=== PATIENT | male | born 1935 | race Native Hawaiian/Other Pacific Islander ===

== ENCOUNTER 2016-04-23 11:31 | Emergency (ER) | payer MEDICARE, MEDICAID ==
[~2016-04-23] VITALS: Ht 167.6 cm; Wt 78.6 kg
[2016-04-23 11:50] VITALS: BP 106/65; PULSE 84; RESP 20; O2SAT 98
[2016-04-23 12:43] LABS: BASOPHILS % (AUTO) 0.3 % (0-3); MONOCYTES % (AUTO) 4.5 % (4-12); Mean Corpuscular Hemoglobin 29.9 pg (27.0-35.0); Mean Corpuscular Volume 83.6 fL (81-100); NEUTROPHILS % (AUTO) 78.7 % (40-74); Platelet Count 396 bil/L (150-400)
[2016-04-23 12:55] LABS: Magnesium 1.7 mg/dL (1.6-2.6)
--- NOTE | 2016-04-23 13:57 | ED.REPORT ---
HPI-General Illness Date of Service Apr 23, 2016 ED Provider: Derrell Kunz MD This is a 80 year old male with a history of DM, kidney failure on peritoneal dialysis, on Plavix, and CAD presenting to the ED from urgent care complaining of generalized malaise that began 2 weeks ago. Daughter states pt has had a normal appetite and chews food but is unable to swallow. Also reports increased malaise. Denies fever, chills, diarrhea, abdominal pain. Pt last saw his speech lang path therapist yesterday, Dr. Heredia. Blood sugar in urgent care of 390. Nursing Notes Stated Complaint: WEAKNESS,HIGH BLOOD SUGAR,LACK OF APPETITE Chief Complaint: General Complaint Nursing Notes Reviewed: Yes Allergies: Coded Allergies: No Known Allergies (Unverified , 04/23/16) General Time Seen by MD: 13:55 Chief Complaint Other Hx Obtained From: Patient Arrived By: Walk-in Sudden in Onset?: Yes Onset Occurred: Just prior to arrival Symptom Duration: Since onset Severity: Current: No pain currently Pertinent Negative: Pt denies other symptoms Recent Healthcare: No recent doctor visit, No recent hospitalization Similar Sx Previous: No Past Medical History Past Medical History CAD Kidney failure Reports: Diabetes mellitus, Denies: COPD, Cancer Past Surgical History Bypass Social History Alcohol Use: Denies alcohol use Ambulatory Status Independent Review of Systems Full Review of Systems Constitutional: Reports: Malaise, Recent wt loss, Denies: Chills, Fever Respiratory: Denies: Non-productive cough, Shortness of breath GI: Denies: Abdominal pain, Diarrhea, Nausea, Vomiting Neurologic: Denies: Change LOC, Headache Complete sys rev & neg: except as marked. Physical Exam Vital Signs Vital Signs Date Time Temp Pulse Resp B/P Pulse Ox O2 Delivery O2 Flow Rate FiO2 04/23/16 17:03 75 21 122/66 100 Room Air 04/23/16 16:13 73 12 100/59 98 Room Air 04/23/16 11:50 36.7 84 20 106/65 98 Room Air Initial VS: Reviewed Head / Eyes: Atraumatic, Normocephalic, PERRL ENT: Mucous membranes moist, Conjunctiva normal, No scleral icterus Neck: Supple, Non-tender, Full range of motion Respiratory: Breath sounds normal, Clear to auscultation, No respiratory distress Extremities: Vascular intact, Neuro intact, No swelling, No tenderness Skin: Warm, Dry, No cyanosis Neurologic: Alert, Oriented, Nonfocal Psychiatric: Mood/affect normal, Behavior normal, Normal thought content General/Constitutional: Awake, Alert Heart Sounds / Murmur: Positive: Murmur present... (II/) Abdomen: Soft, Non-tender Interpretation & Diagnostics Lab Results Interpretation Result Diagram: 04/23/16 1225 04/23/16 1225 Test 04/23/16 12:25 04/23/16 14:00 White Blood Count 11.9th/mm3 (3.8-10.1) Red Blood Count 4.45mil/mm3 (4.40-5.80) Hemoglobin 13.3g/dL (13.8-17.2) Hematocrit 37.2% (41.0-50.0) Mean Corpuscular Volume 83.6fL (81-100) Mean Corpuscular Hemoglobin 29.9pg (27.0-35.0) Mean Corpuscular Hemoglobin Concent 35.8% (32.0-37.0) Red Cell Distribution Width 13.2% (12.3-15.4) Platelet Count 396bil/L (150-400) Neutrophils (%) (Auto) 78.7% (40-74) Lymphocytes (%) (Auto) 13.2% (14-46) Monocytes (%) (Auto) 4.5% (4-12) Eosinophils (%) (Auto) 3.0% (0-5) Basophils (%) (Auto) 0.3% (0-3) Sodium Level 128mEq/L (134-144) Potassium Level 3.1mEq/L (3.5-5.2) Chloride Level 86mEq/L (97-108) Carbon Dioxide Level 25mmol/L (18-29) Blood Urea Nitrogen 35mg/dL (8-27) Creatinine 5.98mg/dL (0.76-1.27) Estimat Glomerular Filtration Rate 10mL/min (>59) Glucose Level 380mg/dL (60-99) Calcium Level 8.3mg/dL (8.5-10.1) Magnesium Level 1.7mg/dL (1.6-2.6) Total Bilirubin 0.4mg/dL (0.0-1.2) Aspartate Amino Transf (AST/SGOT) 17U/L (0-50) Alanine Aminotransferase (ALT/SGPT) 9U/L (0-44) Alkaline Phosphatase 125U/L (25-160) Total Protein 7.0g/dL (6.4-8.4) Albumin 2.7g/dL (3.4-5.0) Lipase 80U/L (13-60) Hold Khan Top Tube Received (Received) Body Fluid Source Peritoneal fluid Body Fluid Color Colorless (Clear) Body Fluid Appearance Clear Body Fluid WBC 14/mm3 Body Fluid RBC 0/mm3 Body Fluid Polynuclear WBCs 4% Body Fluid Lymphocytes 17% Body Fluid Monocytes 60% Body Fluid Eosinophils 19% Body Fluid Basophils 0% Re-Eval/Medical Decision Time of Eval: 17:01 Re-Evaluation/Progress Note: Re-checked, discussed lab results, plan for consult with Dr. Heredia, and plan for d/c. Consultation : Referral / Consult Name: Irina Loya MD Consulted With: Nephrology Call Returned at: 17:15 Community Arts Worker: Will see in office Counseled Regarding: Diagnosis, Lab results, Need for follow-up, When/why to return to ED Discharge & Departure Primary Impression: Abnormal weight loss Disposition: Home Discharge Condition All VS Reviewed: Yes Condition: Stable Additional Instructions: Follow up with Dr. Heredia, nephrology. Your appointment is tomorrow, 04/24, at 11: 00 AM in the [facility]. Your appointment is not in the dialysis unit but in the clinic. No swallowing abnormality was discovered. Return to the emergency department for any new or worsening symptoms Referrals: Enrique Durham MD (PCP) Scribe Attestation Portions of this note were transcribed by Robert Palomares. I, Dr. Kunz personally performed the history, physical exam and medical decision-making; I reviewed and confirmed the accuracy of the information in the transcribed note. Signed by: siomara Miller. 04/23/2016, 15:00. Derrell Kunz MD Apr 23, 2016 13:57 ROBERT PALOMARES Apr 23, 2016 14:02
[2016-04-23 15:44] LABS: BFWBC 14 /mm3; MONOCYTES,BODY FLUID 60 %; OTHER CELLS,BODY FLUID 0
--- NOTE | 2016-04-23 16:00 | NUR ---
Evaluation completed. Please go to "Notes" then click on "Assessments and Notes" (bottom left corner of screen). Then select appropriate discipline tab on top of screen.
[2016-04-23 16:13] VITALS: BP 100/59; PULSE 73; RESP 12; O2SAT 98
[2016-04-23 17:03] VITALS: BP 122/66; PULSE 75; RESP 21; O2SAT 100
[2016-04-23 17:44] VITALS: BP 122/66; PULSE 75; RESP 21; O2SAT 100
== END 2016-04-23 17:44 | disposition home or self-care (01) ==
LOC: SED 11:31
DX: R63.4 Abnormal weight loss (principal); E11.65 Type 2 diabetes mellitus with hyperglycemia; E11.22 Type 2 diabetes mellitus with diabetic chronic kidney disease; I12.9 Hypertensive chronic kidney disease with stage 1 through stage 4 chronic kidney disease, or unspecified chronic kidney disease; N18.9 Chronic kidney disease, unspecified; I25.10 Atherosclerotic heart disease of native coronary artery without angina pectoris; J44.9 Chronic obstructive pulmonary disease, unspecified; Z99.2 Dependence on renal dialysis; Z85.9 Personal history of malignant neoplasm, unspecified; Z95.1 Presence of aortocoronary bypass graft; Z79.02 Long term (current) use of antithrombotics/antiplatelets
CPT/HCPCS: 36415; 80053; 83690; 83735; 85025; 87040; 89051; 92610; 93005; 99284; G8996; G8997; G8998

== ENCOUNTER 2016-10-14 01:06 | Day surgery (SDC) | payer MEDICARE, MEDICAID ==
[~2016-10-14 01:06] MED LIST: AMLO5TAB2 PO; ASPI-973 PO; ATOR80TA PO; CHOL500011 PO; FINA5TAB9 PO; FOLI1CAP4 PO; GABA-502 PO; INSU100I SUBQ; INSU100V7 SUBQ; LACT10SO60 PO; METO25TA3 PO; MULT1CAP33 PO; NITR0.4T SL; OLP.1OP5 AFFECT_EYE; RANI-426 PO; TRAZ-115 PO
== END 2016-10-14 23:59 | disposition home or self-care (01) ==
LOC: SOUO 01:06
PROVIDERS: ATTEND Podiatrist
DX: I73.9 Peripheral vascular disease, unspecified (principal); Z53.20 Procedure and treatment not carried out because of patient's decision for unspecified reasons

== ENCOUNTER 2016-10-27 14:29 | Inpatient (IN) | payer MEDICARE, MEDICAID ==
[~2016-10-27] VITALS: Ht 167.6 cm; Wt 83.2 kg
[2016-10-27] VITALS (8 sets, daily range): BP systolic 153–169; BP diastolic 68–100; PULSE 86–93; RESP 17–27; O2SAT 94–98
--- NOTE | 2016-10-27 14:32 | ED.REPORT ---
HPI-Chest Pain 40 and Over Date of Service Oct 27, 2016 ED Provider: Daniel Kenny DO The pt is a 81 y/o male w/ a hx of type 2 diabetes, CAD, end stage renal disease , and bypass surgery presenting to the ED due to SOB just prior to arrival. The pt is also experiencing a cough, chills, and difficulty sleeping due to excessive phlegm production. Denies fevers. The pts daughter reports his blood sugar level being 163 at 1000 this morning and his blood pressure usually being in the 130s. She also reports the symptoms being similar to an episode of pneumonia he had 6 months ago. Nursing Notes Stated Complaint: CHEST PAIN Chief Complaint: SOB Nursing Notes Reviewed: Yes Allergies: Coded Allergies: No Known Allergies (Unverified , 04/23/16) Scheduled Amlodipine (Amlodipine) 10 Mg Tablet 10 MG PO QAM Aspirin (Aspirin) 81 Mg Tablet 81 MG PO QAM Atorvastatin (Lipitor) 80 Mg Tablet 80 MG PO HS Finasteride (Finasteride) 5 Mg Tablet 5 MG PO QAM Folic Acid/Vitamin B Comp W-C (Triphrocaps Softgel) 1 Mg Capsule 1 MG PO QAM Gabapentin (Gabapentin) 300 Mg Capsule 300 MG PO TID ON FRIDAY/FRIDAY/FRIDAYS Insulin Aspart (NovoLOG U-100 Pen) 100 Unit/Ml Insuln.pen 7-8 UNITS SUBQ TIDAC GIVE 7 UNITS IF BG 100-200 MG/DL, GIVE 8 UNITS IF BG > 200 MG/DL. IF BG < 90 , DO NOT GIVE AND WAIT 2 HOURS Insulin Glargine (Lantus U100 Insulin Vial) 100 Unit/Ml Vial 32-36 UNIT SUBQ HS TAKES 36 UNITS IF BG > 140 MG/DL. 32 UNITS FOR BG 100->140 MG/DL. Multivitamin (Multivitamins) 1 Each Capsule 1 EACH PO QAM [place]-3/Dha/Epa/Fish Oil (Fish Oil 1,000 mg Softgel) 1 Each Capsule 1 EACH PO QAM Ranitidine (Ranitidine) 75 Mg Tablet 75 MG PO QAM Trazodone (Trazodone) 50 Mg Tablet 25 MG PO HS Umeclidinium [place] (Incruse Ellipta) 62.5 Mcg/Actuation Blst.w.dev 62.5 MCG IH QAM Scheduled PRN Lactulose (Lactulose) 20 Gm/30 Ml Solution 20 GM PO PRN For Constipation Nitroglycerin SL (Nitrostat) 0.4 Mg Tab.subl 0.4 MG SL Q5MIN PRN PRN For Chest Pain Olopatadine (Patanol) 5 Ml Soln 1 DRP AFFECT_EYE DAILY PRN PRN For Eye Irritation General Time Seen by MD: 14:32 Chief Complaint Shortness of breath Hx Obtained From: Patient, Daughter Arrived By: Walk-in Sudden in Onset?: Yes Onset Occurred: Just prior to arrival Symptom Duration: Since onset Recent Healthcare: No recent hospitalization, Recent doctor visit Past Medical History Past Medical History CAD Kidney failure End stage renal disease Reports: Diabetes mellitus Past Surgical History Bypass Social History Alcohol Use: Denies alcohol use Other Social History: Good social support Ambulatory Status Independent Review of Systems Excessive phlegm production Constitutional: Reports: Chills, Denies: Fever Respiratory: Reports: Prod cough, green, Shortness of breath Complete sys rev & neg: except as marked. Physical Exam Initial Vital Signs Vital Signs (First) Date Time Temp Pulse Resp B/P Pulse Ox O2 Delivery O2 Flow Rate FiO2 10/27/16 14:34 37.6 93 27 169/78 96 Room Air Initial VS: Reviewed Head / Eyes: Atraumatic, Normocephalic, PERRL ENT: Mucous membranes moist, Conjunctiva normal, No scleral icterus Neck: Supple, Non-tender, Full range of motion Skin: Warm, Dry, No cyanosis Neurologic: Alert, Oriented, Nonfocal Psychiatric: Mood/affect normal, Behavior normal, Normal thought content General/Constitutional: Awake, Alert Respiratory / Chest: Breath sounds = bilat, No respiratory distress Coarse rales bilat Midline sternotomy scar Cardiovascular: Heart rate NL, Regular rhythm, Heart sounds NL Lower Ext Edema: Positive: Bilateral 1+ Abdomen: Soft, Non-tender peritoneal dialysis catheter in Interpretation & Diagnostics Lab Results Interpretation Result Diagram: 10/27/16 1500 10/27/16 1500 Test 10/27/16 15:00 White Blood Count 16.3th/mm3 (3.8-10.1) Red Blood Count 3.49mil/mm3 (4.40-5.80) Hemoglobin 10.9g/dL (13.8-17.2) Hematocrit 32.0% (41.0-50.0) Mean Corpuscular Volume 91.7fL (81-100) Mean Corpuscular Hemoglobin 31.2pg (27.0-35.0) Mean Corpuscular Hemoglobin Concent 34.1% (32.0-37.0) Red Cell Distribution Width 12.6% (12.3-15.4) Platelet Count 225bil/L (150-400) Neutrophils (%) (Auto) 82.7% (40-74) Lymphocytes (%) (Auto) 8.3% (14-46) Monocytes (%) (Auto) 6.2% (4-12) Eosinophils (%) (Auto) 2.4% (0-5) Basophils (%) (Auto) 0.2% (0-3) Prothrombin Time 10.0sec (8.1-12.5) Prothromb Time International Ratio 0.94ratio Sodium Level 135mEq/L (134-144) Potassium Level 3.3mEq/L (3.5-5.2) Chloride Level 95mEq/L (97-108) Carbon Dioxide Level 25mmol/L (18-29) Blood Urea Nitrogen 37mg/dL (8-27) Creatinine 5.53mg/dL (0.76-1.27) Estimat Glomerular Filtration Rate 11mL/min (>59) Glucose Level 78mg/dL (60-99) Lactic Acid Level 1.2mmol/L (0.4-2.0) Calcium Level 8.7mg/dL (8.5-10.1) Magnesium Level 1.9mg/dL (1.6-2.6) Total Bilirubin 0.4mg/dL (0.0-1.2) Aspartate Amino Transf (AST/SGOT) 14U/L (0-50) Alanine Aminotransferase (ALT/SGPT) 17U/L (0-44) Alkaline Phosphatase 98U/L (25-160) Total Creatine Kinase 316U/L (21-232) Creatine Kinase MB 3.6ng/mL (0.0-10.4) Creatine Kinase MB % % (0.0-5.0) Troponin T 0.068ug/L (0.0-0.011) Total Protein 7.6g/dL (6.4-8.4) Albumin 3.9g/dL (3.4-5.0) Procalcitonin 0.13ng/mL (0.00-0.08) ECG Interpretation ECG Interpretation: Rate 90 NSR Inferior Q waves (Old) Lateral Q wave inversions that appear to have been present previously Time: 14:41 X-Ray Chest Interpretation Chest Xray Interpretation: IMPRESSION: 1. New right basilar pneumonia. Follow up plain films of the chest are recommended to ensure resolution, and to exclude underlying or central malignancy. 2. Right perihilar scarring. 3. Cardiomegaly. Dictated by: Han Farrell M.D. on 10/27/2016 at 14:53 Approved by: Han Farrell M.D. on 10/27/2016 at 14:54 View: Portable, 1 view Interpretation / Wet Read by: Interpret - Radiologist Re-Eval/Medical Decision Med Decision/Clinical Course Clinically patient has signs and symptoms of pneumonia. He will be admitted. Source of Hx: Old records Time of Eval: 15:46 Re-Evaluation/Progress Note: Pt rechecked. Informed pt of need for admission. Pt understands and agrees with plan for admission. All questions addressed. Time of Eval: 17:03 Re-Evaluation/Progress Note: Code status discussed: DNR/DNI Consultation : Referral / Consult Name: Bandar Gardner MD Consulted With: Hospitalist Call Returned at: 16:30 New Product Trainer: Will see patient, Agrees with eval, Agrees with plan, Accepts admit Counseled Regarding: Diagnosis, Lab results, Need for admission Discharge & Departure Primary Impression: Pneumonia Pneumonia type: due to unspecified organism Laterality: unspecified laterality Lung location: unspecified part of lung Qualified Code: J18.9 - Pneumonia, unspecified organism Disposition: ADMITTED TO HOSPITAL Discharge Condition All VS Reviewed: Yes Condition: Stable Referrals: Enrique Durham MD (PCP) Scribe Attestation Portions of this note were transcribed by Juni Esparza. I, Dr. Kenny personally performed the history, physical exam and medical decision-making; I reviewed and confirmed the accuracy of the information in the transcribed note. Signed by : Chago Mooney, 10/27/16 and 1529. copies to: Enrique Durham MD, Timothy S DO Oct 27, 2016 14:32 Juni Esparza Oct 27, 2016 15:18
[2016-10-27] MEDS ORDERED: Ondansetron 2 mg/mL 2 mL Inj IVPUSH ONE (14:35)
--- NOTE | 2016-10-27 14:56 | DRSVH ---
PROCEDURE: X-RAY CHEST ONE VIEW, PORTABLE ([id number]) INDICATIONS: chest pain TECHNIQUE: One view of the chest was acquired. COMPARISON: [facility], CT, CT CHEST WO CON, 06/11/2016, 17:03. [facility], CR, XR CHEST 2VW, 06/07/2016, 15:20. FINDINGS: Surgical changes and devices: Median sternotomy. Lungs and pleura: No pleural effusions or pneumothorax. Right perihilar density is not significantly changed. There is new patchy opacity within the right lung base. Mediastinum: Mediastinal contours appear normal. Heart size is enlarged. Bones and chest wall: No suspicious bony lesions. Overlying soft tissues appear unremarkable. IMPRESSION: 1. New right basilar pneumonia. Follow up plain films of the chest are recommended to ensure resoluti on, and to exclude underlying or central malignancy. 2. Right perihilar scarring. 3. Cardiomegaly. Dictated by: Han Farrell M.D. on 10/27/2016 at 14:53 Approved by: Han Farrell M.D. on 10/27/2016 at 14:54
[2016-10-27] MEDS ORDERED: UMEC62.5 IH (15:15)
[2016-10-27] MEDS ORDERED: AMLO10TA3 PO (15:15)
[2016-10-27] MEDS ORDERED: lantus solostar SUBQ (15:15)
[2016-10-27] MEDS ORDERED: FOLI1CAP4 PO (15:15)
[2016-10-27] MEDS ORDERED: OMEG-38 PO (15:15)
[2016-10-27 15:18] LABS: BASOPHILS % (AUTO) 0.2 % (0-3); EOSINOPHILS % (AUTO) 2.4 % (0-5); MONOCYTES % (AUTO) 6.2 % (4-12); Mean Corpuscular Hemoglobin 31.2 pg (27.0-35.0); Mean Corpuscular Volume 91.7 fL (81-100); NEUTROPHILS % (AUTO) 82.7 % (40-74); Platelet Count 225 bil/L (150-400)
[2016-10-27 15:47] LABS: INR 0.94 ratio
[2016-10-27] MEDS ORDERED: cefTRIAXone Inj 2,000 MG in Dextrose 5% Minibag Plus 50 ML IV ONE (15:50)
[2016-10-27] MEDS ORDERED: Azithromycin Inj 500 MG in Dextrose 5% w/Vial Mate 250 ML IV ONE (15:50)
[2016-10-27 16:04] LABS: Creatine Kinase 316 U/L (21-232); Magnesium 1.9 mg/dL (1.6-2.6)
[2016-10-27 16:13] LABS: TROPONIN T 0.068 ug/L (0.0-0.011)
[2016-10-27] MEDS ORDERED: Alum-Mag Hydrox-Simeth 30 mL Suspension PO PRN (17:05)
[2016-10-27] MEDS ORDERED: Ondansetron 2 mg/mL 2 mL Inj IVPUSH PRN ×2 (17:05)
[2016-10-27] MEDS ORDERED: Polyethylene Glycol (PEG) 17 Gm Powder PO PRN (17:05)
[2016-10-27] MEDS ORDERED: Acetylcysteine 10% 100 mg/mL 30 mL Inhalation Solution NEB PRN (17:10)
--- NOTE | 2016-10-27 17:35 | PCM.HPMED ---
Subjective Date of Service Oct 27, 2016 Primary Provider: Admitting Physician: Bandar Gardner MD Primary Care Physician: Enrique Durham MD Attending Physician: Bandar Gardner MD Admit Status: From the Emergency Department, Full Admit, Admit to Green Team Chief Complaint: Progressively worsening dyspnea/3 days Cough and congestion/3 days History of Present Illness: 81 year old gentleman with past medical history of CAD status post CABG,HTN, ESRD on peritoneal dialysis for a year , diabetes presented to the emergency room due to progressively worsening dyspnea, coughing congestion of 3 days. Daughter states he was seen by his PCP on Friday for a scheduled follow-up visit and was noted to have dyspnea , productive cough and congestion of few days . He was told he probably would have COPD and was prescribed Inhalers. There was also concern for asbestosis lung disease given history of asbestos exposure . No antibiotics given. Dyspnea progressively worsened in the last few days and patient started to have shortness of breath at rest. Daughter states he has cough which is productive of whitish sputum. Denies any fever. Denies chronic cough. Denies any sick contact Ed course: Temp 37.6, RR 27, BP 169/78, sats 96% RA WBC 16.3, hemoglobin 10.8, troponin 0.068, EKG no ischemic change, procal 0.13, cxr New right basilar pneumonia. Ceftriaxone and azithromycin started. Admission requested for CAP Review of Systems: Comprehensive review of systems performed, pertinent positives and negatives included in history of present illness Allergies Coded Allergies: No Known Allergies (Unverified , 04/23/16) Home Medications Amlodipine (Amlodipine) 10 Mg Tablet 10 MG PO QAM Aspirin (Aspirin) 81 Mg Tablet 81 MG PO QAM Atorvastatin (Lipitor) 80 Mg Tablet 80 MG PO HS Finasteride (Finasteride) 5 Mg Tablet 5 MG PO QAM Folic Acid/Vitamin B Comp W-C (Triphrocaps Softgel) 1 Mg Capsule 1 MG PO QAM Gabapentin (Gabapentin) 300 Mg Capsule 300 MG PO TID ON FRIDAY/FRIDAY/FRIDAYS Insulin Aspart (NovoLOG U-100 Pen) 100 Unit/Ml Insuln.pen 7-8 UNITS SUBQ TIDAC GIVE 7 UNITS IF BG 100-200 MG/DL, GIVE 8 UNITS IF BG > 200 MG/DL. IF BG < 90 , DO NOT GIVE AND WAIT 2 HOURS Insulin Glargine (Lantus U100 Insulin Vial) 100 Unit/Ml Vial 32-36 UNIT SUBQ HS TAKES 36 UNITS IF BG > 140 MG/DL. 32 UNITS FOR BG 100->140 MG/DL. Multivitamin (Multivitamins) 1 Each Capsule 1 EACH PO QAM [place]-3/Dha/Epa/Fish Oil (Fish Oil 1,000 mg Softgel) 1 Each Capsule 1 EACH PO QAM Ranitidine (Ranitidine) 75 Mg Tablet 75 MG PO QAM Trazodone (Trazodone) 50 Mg Tablet 25 MG PO HS Umeclidinium [place] (Incruse Ellipta) 62.5 Mcg/Actuation Blst.w.dev 62.5 MCG IH QAM Scheduled PRN Lactulose (Lactulose) 20 Gm/30 Ml Solution 20 GM PO PRN For Constipation Nitroglycerin SL (Nitrostat) 0.4 Mg Tab.subl 0.4 MG SL Q5MIN PRN PRN For Chest Pain Olopatadine (Patanol) 5 Ml Soln 1 DRP AFFECT_EYE DAILY PRN PRN For Eye Irritation PMH CAD status post CABG, ESRD on peritoneal dialysis for a year , diabetes Hypertension BPH Surgical History CABG Leg vein harvesting Peritoneal dialysis Family History reviewed and unremarkable. Patient originally from [facility]. Used to live in [place]. His in 2014 of pneumonia. Daughter brought him up to [place] and lives with her. Social History Hx Alcohol Use: No (occ wine) Hx Substance Use: No Exam Vital Signs Vital Sign - Last Date Time Temp Pulse Resp B/P Pulse Ox O2 Delivery O2 Flow Rate FiO2 10/27/16 17:11 87 19 156/68 98 Room Air 10/27/16 14:34 37.6 Exam Gen. patient is lying comfortably in hospital bed HEENT: Head is normocephalic atraumatic, Pupils equal and reactive, extraocular movements intact, Lungs basal crackles Heart regular rate and rhythm without murmurs gallops or rubs Abdomen. peritoneal dialysis catheter in place Extremities pulses are present dorsalis pedis posterior tibialis and radial. tSkin is warm and dry there are no rashes, Psych alert and oriented to person place and time Neuro cranial nerves II through XII are grossly intact Lymph: There is no lymphadenopathy appreciated in the cervical supra infraclavicular regions : no castañeda Lab and Diagnostics Result Diagram: 10/27/16 1500 10/27/16 1500 X-Rays, CTs and MRIs PROCEDURE: X-RAY CHEST ONE VIEW, PORTABLE ([id number]) INDICATIONS: chest pain TECHNIQUE: One view of the chest was acquired. COMPARISON: [facility], CT, CT CHEST WO CON, 06/11/2016, 17:03. [facility], CR, XR CHEST 2VW, 06/07/2016, 15:20. FINDINGS: Surgical changes and devices: Median sternotomy. Lungs and pleura: No pleural effusions or pneumothorax. Right perihilar density is not significantly changed. There is new patchy opacity within the right lung base. Mediastinum: Mediastinal contours appear normal. Heart size is enlarged. Bones and chest wall: No suspicious bony lesions. Overlying soft tissues appear unremarkable. IMPRESSION: 1. New right basilar pneumonia. Follow up plain films of the chest are recommended to ensure resolution, and to exclude underlying or central malignancy. 2. Right perihilar scarring. 3. Cardiomegaly. Dictated by: Han Farrell M.D. on 10/27/2016 at 14:53 12-lead ECG SR no acute st/t wave changes Assessment & Plan 81 year old gentleman with past medical history of CAD status post CABG,ESRD on peritoneal dialysis for a year , diabetes presented to the emergency room due to progressively worsening dyspnea, coughing congestion of 3 days. # suspected CAP ,poa,acute -Patient has productive cough, leukocytosis,CXr consistent with pneumonia -Antibiotic coverage for CAP not HCAP as he gets his dialysis at home -Continue ceftriaxone and azithromycin -Patient has significant congestion, DuoNeb and Mucomyst nebulizer - Unable to send pneumococcus and Legionella # Elevated troponin of unknown significance -EKG without ischemic changes -trend troponin -had echo in July ,will do limited echo #ESRD on PD -Continue PD -May consider nephrology consult tomorrow # History of CAD status post CABG -Continue aspirin, metoprolol xl 25 mg daily, atorvastatin 80 mg daily # dm -Continue home insulin ,LANTUS 32 u HS,Novolog 7-9 ISS (medium correction used here) # Hypertension -Continue amlodipine and metoprolol # Anemia of CKD Patient has a POLST form stating DNR/DNI ,comfort care only /do not hospitalize , but continuous peritoneal dialysis. May consider palliative consult for clarification of goal Patient admitted under inpatient status with expected length of stay > 2 midnights for severity of present symptoms, complexities of treatment plan and risk for adverse events copies to: Enrique Durham MD, Melaku MD Oct 27, 2016 17:35
[2016-10-27] MEDS ORDERED: FOLIC ACID PO SCH (17:45)
[2016-10-27] MEDS: Omega-3 Fatty Acids 1,000 mg Capsule PO SCH (17:45)
[2016-10-27] MEDS ORDERED: Glucose 40% Oral Gel 15 Gm Tube PO PRN (17:45)
[2016-10-27] MEDS ORDERED: Artificial Tears 15 mL Ophthalmic Solution AFFECT_EYE PRN (17:45)
[2016-10-27] MEDS ORDERED: VITAMIN B COMP W C PO SCH (17:45)
--- NOTE | 2016-10-27 18:33 | NUR ---
Admission Admission from ER to room 3014 via gurkaci with daughter at bedside. ABX infusing, 3L O2. Oriented to room and call light. Admission assessments and med rec completed in ER by admission nurse. chief solution architect contacted and planning of doing PD in [facility]. Nasal swab obtained and sent. Plan of care updated on board.
[2016-10-27] MEDS: Tiotropium 18mcg/Cap 5 Capsule Inhaler Kit INHALATION SCH (21:02)
[2016-10-27] MEDS: Albuterol-Ipratropium 3 mL Inhalation Solution NEB PRN ×2 (21:16→21:19)
[2016-10-27] MEDS: Insulin LISPRO 300 Unit/3 mL Inj SUBQ SCH (22:00)
[2016-10-27] MEDS: Insulin GLARgine 100 Unit/mL Syringe SUBQ SCH (22:05)
[2016-10-28] VITALS (8 sets, daily range): BP systolic 138–157; BP diastolic 68–75; PULSE 58–93; RESP 18–20; O2SAT 91–99
--- NOTE | 2016-10-28 06:13 | NUR ---
Dialysis PD started by dialysis nurse and patient tolerating initially. Patient woke up c/o severe abd pain. Abd noted to be distended as expected with PD but patient states the pressure is not tolerable. manager call center dialysis nurse called and abd drained to relieve pressure. Pain resolved until next cycle but did not seem as severe. Each time abd drained pain resolved. Currently resting without any complaints.
[2016-10-28 06:17] LABS: BASOPHILS % (AUTO) 0.3 % (0-3); EOSINOPHILS % (AUTO) 0.5 % (0-5); MONOCYTES % (AUTO) 7.2 % (4-12); Mean Corpuscular Hemoglobin 31.7 pg (27.0-35.0); Mean Corpuscular Volume 92.7 fL (81-100); NEUTROPHILS % (AUTO) 85.8 % (40-74); Platelet Count 202 bil/L (150-400)
--- NOTE | 2016-10-28 07:20 | NUR ---
Disconnected PD dialysis. Pt stable, site secured. Total UF 914.
[2016-10-28] MEDS ORDERED: Azithromycin Inj 500 MG in Dextrose 5% w/Vial Mate 250 ML IV SCH (08:30)
[2016-10-28] MEDS: Tiotropium 18mcg/Cap 5 Capsule Inhaler Kit INHALATION SCH (10:19)
[2016-10-28] MEDS: Omega-3 Fatty Acids 1,000 mg Capsule PO SCH (10:21)
[2016-10-28] MEDS: Insulin LISPRO 300 Unit/3 mL Inj SUBQ SCH ×4 (10:22→23:56)
[2016-10-28] MEDS: cefTRIAXone Inj 1,000 MG in Dextrose 5% Minibag Plus 50 ML IV SCH (10:23)
--- NOTE | 2016-10-28 11:09 | NUR ---
Palliative Care Palliative Care received verbal order from Dr Junior 10/28/16 to assist with goals of care. Patient admitted 10/27/16. Per Dr Junior in morning rounds, patient is Gibraltarian speaking and refusing care/testing until his family arrives. Patient arrived to hospital with POLST stating DNR/comfort care/Do not hospitalize. Anyi Mcgowan (daughter/POA) [phone], Daniele Mcgowan (son in law) [phone] Palliative Care to follow. Almaz Alva Addendum: 10/28/16 at 1213 by ALMAZ FOOTE Patient speaks Irish, not Gibraltarian. Almaz Alva
--- NOTE | 2016-10-28 13:26 | DRSVH ---
[facility] [address] [place] [address] Echocardiogram Report Name: TONY ARTEAGA BStudy Date: 10/28 Height: 66 in Hospital Exam Location: [facility] Weight: 183 lb Gender: Male BSA: 1.9 m2 : 1935 Age: 81 yrs BP: 138/68 mmHg Reason For Study: Dyspnea History: CABG Ordering Physician: Performed By: Martha Le Referring Physician: Francis Durham Interpretation Summary Left ventricular wall thickness is mild-moderately increased. The ejection fraction is estimated to be 60-65%. The calculated aortic valve area is 0.9 cm2. There has been no significant change since the previous study. The right ventricular systolic pressure is estimated at 40 mmHg assuming a right atrial pressure of 8 mm Hg. Procedure: A two-dimensional transthoracic echocardiogram with color flow and Doppler was performed in limited views only. The study quality was technically adequate. Comparison is made with the echocardiogram of 07/22/2016. The patient was in normal sinus rhythm during the exam. Left Ventricle: Left ventricular wall thickness is mild-moderately increased. The left ventricle is normal in size. The ejection fraction is estimated to be 60-65%. Assessment of diastolic parameters suggests a pseudonormalization pattern, consistent with elevated filling pressures. Right Ventricle: The right ventricle is normal in size and function. Atria: The left atrium is mildly dilated. Mitral Valve: The mitral valve leaflets are slightly calcified. There is mild mitral annular calcification. There is trace mitral regurgitation. Aortic Valve: The aortic valve is not well visualized. The aortic valve is moderately calcified. The calculated aortic valve area is 0.9 cm2. The peak aortic velocity is 3.3 m/sec. The aortic valve mean gradient is 27 mmHg. The peak aortic velocity on the previous exam was 3.1 m/sec. There has been no significant change since the previous study. There is trace aortic regurgitation. Tricuspid Valve: The tricuspid valve is normal. There is trace tricuspid regurgitation. The right ventricular systolic pressure is estimated at 40 mmHg assuming a right atrial pressure of 8 mm Hg. Great Vessels: The IVC is of normal diameter and collapses less than 50% with a sniff. This suggests a right atrial pressure of 8 mm Hg. Pericardium/ Pleura There is no pericardial effusion. MMode/2D Measurements & Calculations LVIDd: 4.3 cm LA A4 area LVOT diam LV george. diameter/BSA LVIDs: 3.2 cm (cm/m^2): 2.2 FS: 24.9 % AoV Opening IVSd: 1.3 cm LA length : 0.52 cm LVPWd: 1.4 cm (vol): 5.5 cm IVC diam : 2.1 cm LV sys. diameter/BSA RVD1 (basal) RVD2 (mid) TAPSE: 1.9 cm (cm/m^2): 1.7 : 2.7 cm Doppler Measurements & Calculations Ao V2 max MV E max yevgeniy MV E/A: 0.94 TR max yevgeniy : 332.3 cm/sec : 92.4 cm/sec Med Peak E' Yevgeniy : 281.4 cm/sec Ao max P.2 mmHg MV A max yevgeniy TR max PG Ao mean P.5 mmHg : 98.4 cm/sec E/E' med: 16.0 : 31.7 mmHg LVOT Max Yevgeniy MV P1/2t Lat Peak E' Yevgeniy : 89.2 cm/sec : 40.7 msec TERESA(I,D): 0.90 cm E/E' lat: 11.3 sev ratio: 0.25 E/e' average MV dec time: 0.14 sec MV P1/2t max yevgeniy Ao V2 mean LV V1 max PG : 246.0 cm/sec MVA(P1/2t) Ao V2 VTI: 72.3 cm LV V1 VTI : 5.4 cm2 TERESA(V,D): 0.97 cm2 : 18.1 cm TERESA indexed to [facility] (cm^2/m^2): 0.47 Electronically signed by: Juan Canchola on Reading Physician:10/28/2016 01:25 PM
--- NOTE | 2016-10-28 15:02 | PCM.CONPAL ---
Date of Service Oct 28, 2016 Date of Hospital Admission: Oct 27, 2016 at 16:50 Date of Palliative Consult: Oct 28, 2016 Requesting Provider: Robert Junior MD Reason Palliative Care Consult: Advance Care Planning, Goals of Care Discussion Hospital Unit @time of consult: Medical/Pediatric Care Palliative Care Recommendation Summary of palliative recommendations: -Symptom management (Pain/other)- comfortable and without symptomatic distress at this time. Continued management per the medical/hospitalist team -DPOA/Advanced Directives/POLST- lengthy discussion with clarification of advanced directive issues as documented below. New POLST indicating DO NOT RESUSCITATE/DO NOT INTUBATE/limited interventions/hospitalization and antibiotics and continued dialysis okay/no artificial nutrition. Original and copy given to the patient's daughter, and copies placed in his chart and in the palliative office. Talked with his daughter about eventual need to update the document if/when his healthcare wishes evolve. -Family/emotional support- excellent support from his daughter Patient Goals: 1. Patient wants to be told the truth about his illness, even if it is unpleasant. 2. Patient would like to be told prognosis when it can be predicted, to better guide treatment decisions. 3. Patient would choose quality of life over quantity of life, and defines quality as maintaining his current functional level at home Additional Medical Diagnoses with primary management by Hospitalist team include : # suspected CAP ,poa,acute # Elevated troponin of unknown significance #ESRD on PD # History of CAD status post CABG # dm # Hypertension # Anemia of CKD Problems: End of Life Preferences DO NOT RESUSCITATE/DO NOT INTUBATE/limited interventions Disposition Return home with his daughter Resuscitation Status Resuscitation Status: DNR/DNI:Do Not Resuscitate/Intubate POLST Updates/Changes Previous POLST?: Yes POLST Last Review Date: Oct 28, 2016 Antibiotics: Determine Use or Limitations Artificially Admin Nutrition: No Artifical Nutrition by Tube POLST Discussed with: Patient, Health Care Agent (DPOAHC) POLST Review Outcome: New Form Completed . Advanced Care Planning Address: POLST Pain: None Symptom management: Dyspnea Pt History History of Present Illness Per admission H&P: 81 year old gentleman with past medical history of CAD status post CABG,HTN, ESRD on peritoneal dialysis for a year , diabetes presented to the emergency room due to progressively worsening dyspnea, coughing congestion of 3 days. Daughter states he was seen by his PCP on Friday for a scheduled follow-up visit and was noted to have dyspnea , productive cough and congestion of few days . He was told he probably would have COPD and was prescribed Inhalers. There was also concern for asbestosis lung disease given history of asbestos exposure . No antibiotics given. Dyspnea progressively worsened in the last few days and patient started to have shortness of breath at rest. Daughter states he has cough which is productive of whitish sputum. Denies any fever. Denies chronic cough. Denies any sick contact Ed course: Temp 37.6, RR 27, BP 169/78, sats 96% RA WBC 16.3, hemoglobin 10.8, troponin 0.068, EKG no ischemic change, procal 0.13, cxr New right basilar pneumonia. Ceftriaxone and azithromycin started. Admission requested for CAP Palliative medicine consulted to assist in determination of goals of care- in particular, to help clarify discrepancy between patient and family wishes for care and documentation available on his POLST Prior to visiting patient, I talked with his hospitalist and with his bedside nurse, and reviewed his records in the EMR in detail. Patient does not speak [place] and so conversation was with his daughter who is his POA and caregiver, with her explaining and translating to the patient. When I arrived, he was sitting at bedside eating lunch. He appeared to be in no distress and spoke actively with his daughter, taking a full role in our conversation. He had experienced some chest discomfort earlier which seemed improved. He had no nausea or dyspnea. He had earlier had some pain with installation of his PD fluid this was resolved as well. His daughter cares for him at home. He generally has a good quality life, is active, good appetite, socially interactive. He and his family are still been to arrange a trip back to visit other relatives in the [facility], though at this time it is difficult to make arrangements because of his ongoing needs for peritoneal dialysis. His daughter showed me the POLST that they have at home and we reviewed it step- by-step in detail. Both the patient and his daughter remained quite certain that he is to be DO NOT RESUSCITATE/DO NOT INTUBATE. The POLST indicates comfort measures only and this became the crux of our conversation. Both the patient and his daughter clearly want him to continue dialysis, as well as return to the hospital for treatable medical problems. They both indicated that if he ever some day reaches a medical state where he is bedridden, has no significant quality of life, is unable to eat or drink on his own, and has no recovery that he would then want to transition to purely comfort care. I explained to the patient and his daughter that the current POLST does not reflect those wishes. We talked over options for completing the document in another way that would be more accurate and they wholeheartedly endorsed that. I obtained a blank POLST form and we completed it as documented elsewhere. Past Medical History Significant PMH Noted: CAD status post CABG, ESRD on peritoneal dialysis for a year , diabetes Hypertension BPH Surgical History CABG Leg vein harvesting Peritoneal dialysis Social History Occupation: Retired Family Members Issues: Cared for at home by his daughter Social Support: Excellent support from family members Living Situation: As above POLST at Time of Admission Previous POLST?: Yes POLST Last Review Date: Oct 28, 2016 Cardiopulmonary Resuscitation: DNR: Do Not Attempt Resuscitation Medical Interventions: Comfort Measures Only POLST Discussed with: Patient, Health Care Agent (DPOAHC) POLST Status: Changed-see new form Allergy Allergies Reviewed: Yes Medications Current Medications: Current Medications Nitroglycerin 0.4 mg Q5MIN PRN SL; Start 10/27/16 at 14:35; Stop 10/27/16 at 15 :01; Status DC Morphine Sulfate UP TO 10 mg IV in a 4 h... Q15MIN PRN IVPUSH; Start 10/27/16 at 14:35; Stop 10/27/16 at 17:10; Status DC Ondansetron HCl Dose range: 4 mg to 8 mg Q4H PRN IVPUSH; Start 10/27/16 at 17: 05; Stop 10/27/16 at 17:10; Status DC Acetaminophen 975 mg Q6H PRN PO Last administered on 10/28/16t 00:37; Admin Dose 975 MG; Start 10/27/16 at 17:05 Al Hydrox/Mg Hydrox/Simethicone 30 ml Q6H PRN PO; Start 10/27/16 at 17:05; Stop 10/27/16 at 17:09; Status DC Ondansetron HCl 4 to 8 mg Q4H PRN IVPUSH; Start 10/27/16 at 17:05 Senna 17.2 mg BID PRN PO; Start 10/27/16 at 17:05 Polyethylene Glycol 17 gm 17 gm DAILY PRN PO; Start 10/27/16 at 17:05 Ceftriaxone Sodium 1000 mg/ Dextrose/Water 50 ml @ 100 mls/hr DAILY IV Last administered on 10/28/16 10:23; Admin Dose 100 MLS/HR; Start 10/28/16 at 08:30 Azithromycin/ Dextrose/Water 250 ml @ 250 mls/hr Q24 IV Last administered on 12:20; Admin Dose 250 MLS/HR; Start 10/28/16 at 08:30; Stop 10/28/16 at 13:17; Status DC Albuterol/ Ipratropium 3 ml Q6H PRN NEB Last administered on 10/27/16 21:19; Admin Dose 3 ML; Start 10/27/16 at 17:10 Acetylcysteine 1,000 mg [id number] PRN NEB; Start 10/27/16 at 17:10 Aspirin 81 mg DAILY PO Last administered on 10/28/16 10:21; Admin Dose 81 MG; Start 10/27/16 at 17:45 Finasteride 5 mg DAILY PO Last administered on 10/28/16 10:21; Admin Dose 5 MG ; Start 10/28/16 at 08:30 Gabapentin 300 mg TID PO Last administered on 10/27/16 21:03; Admin Dose 300 MG ; Start 10/27/16 at 20:30; Stop 10/28/16 at 13:45; Status DC Insulin Glargine 32 unit HS SUBQ Last administered on 10/27/16 22:05; Admin Dose 32 UNIT; Start 10/27/16 at 21:00 Nitroglycerin 0.4 mg Q5MIN PRN SL; Start 10/27/16 at 17:45 Trazodone HCl 25 mg HS PO Last administered on 10/27/16 21:03; Admin Dose 25 MG ; Start 10/27/16 at 21:00 Amlodipine Besylate 10 mg DAILY PO Last administered on 10/28/16 13:35; Admin Dose 10 MG; Start 10/27/16 at 17:45 Atorvastatin Calcium 80 mg HS PO Last administered on 10/27/16 21:03; Admin Dose 80 MG; Start 10/27/16 at 21:00 Non-Formulary Medication 1 mg QAM PO; Start 10/27/16 at 17:45; Status UNV Multivitamins/ Minerals Therapeutic 1 tablet DAILY PO Last administered on 13:35; Admin Dose 1 TABLET; Start 10/27/16 at 17:45 Artificial Tears 1 drop DAILY PRN AFFECT_EYE; Start 10/27/16 at 17:45 Non-Formulary Medication 1 each QAM PO; Start 10/27/16 at 17:45; Status UNV Famotidine 20 mg DAILY PO Last administered on 10/28/16 10:21; Admin Dose 20 MG ; Start 10/27/16 at 17:45 Tiotropium [place] 18 mcg DAILY INHALATION Last administered on 10/28/16 10:19 ; Admin Dose 18 MCG; Start 10/27/16 at 17:45 Insulin Human Lispro Nutritional Dose to be given pr... [facility] SUBQ Last administered on 10/28/16 13:37; Admin Dose 5 UNIT; Start 10/27/16 at 22:00 Azithromycin 500 mg DAILY PO; Start 10/28/16 at 13:15 Azithromycin 500 mg DAILY PO; Start 10/29/16 at 08:30; Status Cancel Gabapentin 300 mg MoWeFr@21 PO; Start 10/28/16 at 21:00 Gabapentin 300 mg Q48 PO; Start 10/30/16 at 21:00; Status UNV Lactulose 20 gm DAILY PO; Start 10/28/16 at 13:50 Scheduled Amlodipine (Amlodipine) 10 Mg Tablet 10 MG PO QAM Aspirin (Aspirin) 81 Mg Tablet 81 MG PO QAM Atorvastatin (Lipitor) 80 Mg Tablet 80 MG PO HS Finasteride (Finasteride) 5 Mg Tablet 5 MG PO QAM Folic Acid/Vitamin B Comp W-C (Triphrocaps Softgel) 1 Mg Capsule 1 MG PO QAM Gabapentin (Gabapentin) 300 Mg Capsule 300 MG PO DAILY ON FRIDAY/FRIDAY/FRIDAYS Insulin Aspart (NovoLOG U-100 Pen) 100 Unit/Ml Insuln.pen 7-8 UNITS SUBQ TIDAC GIVE 7 UNITS IF BG 100-200 MG/DL, GIVE 8 UNITS IF BG > 200 MG/DL. IF BG < 90 , DO NOT GIVE AND WAIT 2 HOURS Insulin Glargine (Lantus U100 Insulin Vial) 100 Unit/Ml Vial 32-36 UNIT SUBQ HS TAKES 36 UNITS IF BG > 140 MG/DL. 32 UNITS FOR BG 100->140 MG/DL. Multivitamin (Multivitamins) 1 Each Capsule 1 EACH PO QAM [place]-3/Dha/Epa/Fish Oil (Fish Oil 1,000 mg Softgel) 1 Each Capsule 1 EACH PO QAM Ranitidine (Ranitidine) 75 Mg Tablet 75 MG PO QAM Trazodone (Trazodone) 50 Mg Tablet 25 MG PO HS Umeclidinium [place] (Incruse Ellipta) 62.5 Mcg/Actuation Blst.w.dev 62.5 MCG IH QAM Scheduled PRN Lactulose (Lactulose) 20 Gm/30 Ml Solution 20 GM PO PRN For Constipation Nitroglycerin SL (Nitrostat) 0.4 Mg Tab.subl 0.4 MG SL Q5MIN PRN PRN For Chest Pain Olopatadine (Patanol) 5 Ml Soln 1 DRP AFFECT_EYE DAILY PRN PRN For Eye Irritation Objective Findings Exam Vital Sign - Last Date Time Temp Pulse Resp B/P Pulse Ox O2 Delivery O2 Flow Rate FiO2 10/28/16 13:44 36.8 93 18 149/69 95 Room Air 10/27/16 21:22 3.00 Intake and Output 10/27/16 10/27/16 10/28/16 Cumulative From/Thru 15:00 23:00 07:00 10/27/16 14:34 - 10/28/16 06:56 Intake Total 260 ml 120 ml 380 ml Output Total 914.00 ml 20 ml 934.00 ml Balance -654.00 ml 100 ml -554.00 ml Intake Oral 0 ml 120 ml 120 ml IV Total 260 ml 0 ml 260 ml Output Urine Total 0 ml 20 ml 20 ml Ultrafiltrate 914.00 ml 914.00 ml # Bowel Movements 0 0 Objective Per admitting hospitalist; reviewed and stable Gen. patient is lying comfortably in hospital bed HEENT: Head is normocephalic atraumatic, Pupils equal and reactive, extraocular movements intact, Lungs basal crackles Heart regular rate and rhythm without murmurs gallops or rubs Abdomen. peritoneal dialysis catheter in place Extremities pulses are present dorsalis pedis posterior tibialis and radial. tSkin is warm and dry there are no rashes, Psych alert and oriented to person place and time Neuro cranial nerves II through XII are grossly intact Lymph: There is no lymphadenopathy appreciated in the cervical supra infraclavicular regions : no castañeda Lab/Diagnostics Lab and Imaging results reviewed in detail in EMR. Time spent Total time 60 minutes; >50% face to face with patient and family, providing counselling regarding plans and recommendations, and in care coordination with his medical teams. Of the above total time, 30 minutes counseling for advanced care planning with the patient and his daughter/POA copies to: Irina Loya MD; Enrique Durham MD, David F MD Oct 28, 2016 15:02
[2016-10-28] MEDS: Lactulose 20 Gm/30 mL 30 mL Syrup PO SCH (16:00)
--- NOTE | 2016-10-28 16:16 | NUR ---
Social Work-initial assessment/multidisciplinary rounds: Data:See initial assessment. Pt is a 81 y/o male who was admitted on 10/27/16 for pneumonia per H&P. Pt's insurance is [facility] and [facility] and PCP is Aquiles Bhagat MD. EMR Reviewed. MELLISA met with pt and daughter Anyi at bedside, SW role explained. Pt resides at home with his daughter who provides 28/10 care where he remains independent with basic ADLs. Pt does not drive and does use a 4ww or cane. Pt has no HH or SNF history. Pt has no snf care insurance or VA benefits. SW discussed DPOA/ advanced directive, daughter confirms this has been completed. SW encouraged a copy to be brought in. Pt's daughter does peritoneal dialysis at home for pt. SW provided them with discharge planning checklist and encouraged them to call with any questions. SW provided phone number on white board in room. Pt's daughter to provide transprot home. No anticipated discharge needs. SW will continue to follow if needs arise. Assessment:Pt who is independent at baseline. Plan:Pt to discharge home when medically stable via POV. No anticipated discharge needs. SW will continue to follow if needs arise. FELICIA Steinberg Addendum: 10/28/16 at 1620 by AJITH GUAJARDO Amended: Links added.
[2016-10-28 16:56] LABS: APPEARANCE,URINE HAZY (CLEAR,HAZY); COLOR,URINE STRAW (YELLOW); OCCULT BLOOD,URINE TRACE (NEGATIVE); UROBILINOGEN,URINE NORMAL (NORMAL)
--- NOTE | 2016-10-28 19:03 | PCM.CHPMED ---
Subjective Date of Service: Oct 28, 2016 Provider requesting consult: Bandar Gardner MD Primary Physician: Admitting Physician: Bandar Gardner MD Primary Care Physician: Enrique Durham MD Attending Physician: Robert Junior MD Chief Complaint: Chief Complaint: ESRD History of Present Illness: Nephrology consultation: Mr. 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 Nephrology was consult to manage peritoneal dialysis secondary to end-stage renal disease. Per admission note patient was seen by PCP on Friday and was seen to have dyspnea, productive cough and congestion and prescribed inhalers. During interview of patient with patient's daughter present in room she states patient has a mildly productive cough most notably in the morning and has had a steady progression of dyspnea over the last week. Patient's daughter denies any fevers /chills, nausea vomiting, or complaints though does state he has been constipated over the last few days. No reported chest pain. In the ED patient was found to have tachypnea and mild temperature elevation with leukocytosis. EKG showed no ischemic change protocol stone was normal. Chest x-ray showed a new right basilar pneumonia and he was started on ceftriaxone and azithromycin. Review of Systems: A comprehensive review of systems was conducted with the patient and found to be negative except as above in the history of present illness. PMH Past Medical History CAD status post CABG, ESRD on peritoneal dialysis for a year , diabetes Hypertension BPH Aortic stenosis Bedside Blood Glucose: 195 Surgical History CABG Leg vein harvesting Peritoneal dialysis Home Medications Amlodipine (Amlodipine) 10 Mg Tablet 10 MG PO QAM Aspirin (Aspirin) 81 Mg Tablet 81 MG PO QAM Atorvastatin (Lipitor) 80 Mg Tablet 80 MG PO HS Finasteride (Finasteride) 5 Mg Tablet 5 MG PO QAM Folic Acid/Vitamin B Comp W-C (Triphrocaps Softgel) 1 Mg Capsule 1 MG PO QAM Gabapentin (Gabapentin) 300 Mg Capsule 300 MG PO TID ON FRIDAY/FRIDAY/FRIDAYS Insulin Aspart (NovoLOG U-100 Pen) 100 Unit/Ml Insuln.pen 7-8 UNITS SUBQ TIDAC GIVE 7 UNITS IF BG 100-200 MG/DL, GIVE 8 UNITS IF BG > 200 MG/DL. IF BG < 90 , DO NOT GIVE AND WAIT 2 HOURS Insulin Glargine (Lantus U100 Insulin Vial) 100 Unit/Ml Vial 32-36 UNIT SUBQ HS TAKES 36 UNITS IF BG > 140 MG/DL. 32 UNITS FOR BG 100->140 MG/DL. Multivitamin (Multivitamins) 1 Each Capsule 1 EACH PO QAM [place]-3/Dha/Epa/Fish Oil (Fish Oil 1,000 mg Softgel) 1 Each Capsule 1 EACH PO QAM Ranitidine (Ranitidine) 75 Mg Tablet 75 MG PO QAM Trazodone (Trazodone) 50 Mg Tablet 25 MG PO HS Umeclidinium [place] (Incruse Ellipta) 62.5 Mcg/Actuation Blst.w.dev 62.5 MCG IH QAM Scheduled PRN Lactulose (Lactulose) 20 Gm/30 Ml Solution 20 GM PO PRN For Constipation Nitroglycerin SL (Nitrostat) 0.4 Mg Tab.subl 0.4 MG SL Q5MIN PRN PRN For Chest Pain Olopatadine (Patanol) 5 Ml Soln 1 DRP AFFECT_EYE DAILY PRN PRN For Eye Irritation Allergies: Coded Allergies: No Known Allergies (Unverified , 04/23/16) Family History Family History Patient originally from [facility]. Used to live in [place]. His in 2014 of pneumonia. Daughter brought him up to [place] and lives with her. Social History Hx Alcohol Use: No (occ wine)Hx Substance Use: No Exam Vital Signs Vital Sign - Last Date Time Temp Pulse Resp B/P Pulse Ox O2 Delivery O2 Flow Rate FiO2 10/28/16 17:29 58 18 91 Nasal Cannula 10/28/16 13:44 36.8 149/69 10/27/16 21:22 3.00 Intake and Output 10/27/16 10/27/16 10/28/16 Cumulative From/Thru 15:00 23:00 07:00 10/27/16 14:34 - 10/28/16 06:56 Intake Total 260 ml 120 ml 380 ml Output Total 914.00 ml 20 ml 934.00 ml Balance -654.00 ml 100 ml -554.00 ml Intake Oral 0 ml 120 ml 120 ml IV Total 260 ml 0 ml 260 ml Output Urine Total 0 ml 20 ml 20 ml Ultrafiltrate 914.00 ml 914.00 ml # Bowel Movements 0 0 General: No acute distress, well-developed, well-nourished, appropriately interactive. HEENT: Normocephalic, atraumatic. External ears without defect. Pupils equal, round, and reactive to light and accommodation. Anicteric sclerae, moist conjunctivae, and no lid lag. Oropharynx free of erythema and cobble stoning with moist mucosa. Neck: Supple with full range of motion. No jugular venous distension. No bruits. Cardiovascular: Regular rate and rhythm with no murmurs, rubs, or gallops appreciated Pulmonary: Right lower lobe crackles. No use of accessory muscle usage, normal respiratory effort. Abdomen: Distended abdomen, peritoneal dialysis catheter in place bandage intact. Mildly tender to palpation catheter insertion site. Extremities: No clubbing, cyanosis, edema. Skin: Normal temperature, turgor, and texture. Neurological: Cranial nerves grossly intact. Psychiatric: Normal mood and affect. Alert and oriented to person, place, and time. Lab and Diagnostics Result Diagram: 10/28/16 0540 10/28/16 0540 X-Rays, CTs and MRIs X-RAY CHEST ONE VIEW, PORTABLE IMPRESSION: 1. New right basilar pneumonia. Follow up plain films of the chest are recommended to ensure resolution, and to exclude underlying or central malignancy. 2. Right perihilar scarring. 3. Cardiomegaly. Dictated by: Han Farrell M.D. on 10/27/2016 at 14:53 Additional Diagnostics: Echocardiogram report: Left ventricular wall thickness is mild-moderately increased. The ejection fraction is estimated to be 60-65%. The calculated aortic valve area is 0.9 cm2. There has been no significant change since the previous study. The right ventricular systolic pressure is estimated at 40 mmHg assuming a right atrial pressure of 8 mm Hg. Assessment & Plan Assessment 81 year old gentleman with past medical history of ESRD on PD x 1 yr, CAD s/p CABG,HTN, diabetes admitted for CAP. Nephrology consulted for PD management. ESRD on peritoneal dialysis, present on admission, active - Continue with peritoneal dialysis - Continue to monitor electrolytes Possible CAP, present on admission, active - Antibiotics per primary team Addendum: Patient was seen and examined. Case was discussed with a resident. Agree with assessment and plan as above. Will order PD fluid analysis for cell diff/count, erika stain and culture. Resume PD: 4 cycles, 9 hrs, total volume 10,000 ml, 2500 ml per cycle, 2.5% dextrose. Last fill with icodextrin 1500 ml. Lactulose 20 gm daily to prevent constipation. Thank you for the consultation. Anand Heredia, pg [phone] Problems: Resuscitation Status: DNR/DNI:Do Not Resuscitate/Intubate YUE FULTON DO Oct 28, 2016 19:03 Irina Loya MD Oct 28, 2016 21:21
--- NOTE | 2016-10-28 19:40 | NUR ---
Pain/Activity/Glucose Patient philipino speaking only, daughter at bedside to assist with interpreting per patient request he declined using interpretor on a stick. Patient sleeping intermittently this a.m. C/O left side arm and chest pain this a.m. during antibiotic infusion, MD notified and up to assess patient. IV antibiotics changed to po per MD orders. Taking diet well. Up amb in room with sba, had BM x 1. Voiding yellow uop, sample sent to lab this a.m. Glucose 233,275,195. sliding scale insulin given. Patient c/o LUQ abd pain during filling with dialysis fluid this evening, declined pain meds. Peritoneal drain intact, kay c/d/i. Echo done this a.m. VSS, tele SR.
[2016-10-28 22:22] LABS: BFWBC 0 /mm3
[2016-10-28] MEDS: Insulin GLARgine 100 Unit/mL Syringe SUBQ SCH (23:55)
[2016-10-29] VITALS (10 sets, daily range): BP systolic 133–155; BP diastolic 51–73; PULSE 81–93; RESP 16–20; O2SAT 92–100
--- NOTE | 2016-10-29 00:04 | PCM.PNMED ---
Subjective Date of Service Oct 28, 2016 Subjective The patient is complaining of the IV azithromycin hurting his arm. He has no other new complaints today. Exam Vital Signs Vital Sign - Last Date Time Temp Pulse Resp B/P Pulse Ox O2 Delivery O2 Flow Rate FiO2 10/28/16 20:20 73 20 98 Nasal Cannula 3.00 10/28/16 19:55 36.8 143/72 Intake and Output 10/27/16 10/27/16 10/28/16 Cumulative From/Thru 15:00 23:00 07:00 10/27/16 14:34 - 10/28/16 06:56 Intake Total 260 ml 120 ml 380 ml Output Total 914.00 ml 20 ml 934.00 ml Balance -654.00 ml 100 ml -554.00 ml Intake Oral 0 ml 120 ml 120 ml IV Total 260 ml 0 ml 260 ml Output Urine Total 0 ml 20 ml 20 ml Ultrafiltrate 914.00 ml 914.00 ml # Bowel Movements 0 0 Exam General: Patient is sitting up on side of bed with an ice pack on his left arm over the IV site as he azithromycin is hurting his arm. He is otherwise in no apparent distress. HEENT: Head is atraumatic and normocephalic. Eyes: Pupils are equally round and reactive to light and accommodation. Extraocular muscles are intact. Sclera are white, anicteric. Subconjunctival mucosa is pink. Ears and nose are unremarkable. Oropharynx: There is no mucosal lesions, there is no thrush, there is no pharyngitis. Neck: Is supple, there are no nodes, or masses or tenderness. Chest: Is clear to auscultation and percussion. There are no rales, rhonchi, wheezes or rubs. Heart: Rate, rhythm is regular. There is no murmur, rub or gallop. Abdomen: Good bowel sounds are present. Abdomen is soft, nontender, no organomegaly or masses were appreciated. Extremities: Are symmetrical and well perfused. There is no edema, there is no cellulitis, no rash. Neurologic: There are no focal neurological deficits. Cranial nerves II through XII are intact. There are no sensory or motor deficits. Psychiatric: Patients mood is calm and shows no sign of agitation. Genital: Deferred Rectal: Deferred Lab and Diagnostics Result Diagram: 10/28/16 0540 10/28/16 0540 Microbiology Blood cultures are negative to date. MRSA screen is negative. X-Rays, CTs and MRIs PROCEDURE: X-RAY CHEST ONE VIEW, PORTABLE ([id number]) INDICATIONS: chest pain TECHNIQUE: One view of the chest was acquired. COMPARISON: [facility], CT, CT CHEST WO CON, 06/11/2016, 17:03. [facility], CR, XR CHEST 2VW, 06/07/2016, 15:20. FINDINGS: Surgical changes and devices: Median sternotomy. Lungs and pleura: No pleural effusions or pneumothorax. Right perihilar density is not significantly changed. There is new patchy opacity within the right lung base. Mediastinum: Mediastinal contours appear normal. Heart size is enlarged. Bones and chest wall: No suspicious bony lesions. Overlying soft tissues appear unremarkable. IMPRESSION: 1. New right basilar pneumonia. Follow up plain films of the chest are recommended to ensure resolution, and to exclude underlying or central malignancy. 2. Right perihilar scarring. 3. Cardiomegaly. Dictated by: Han Farrell M.D. on 10/27/2016 at 14:53 12-lead ECG SR no acute st/t wave changes Cardiac Echo Impressions Echocardiogram Report Name: TONY ARTEAGA BStudy Date: 10/28 Height: 66 in Hospital Exam Location: [facility] Weight: 183 lb Gender: Male BSA: 1.9 m2 : 1935 Age: 81 yrs BP: 138/68 mmHg Reason For Study: Dyspnea History: CABG Ordering Physician: Performed By: Martha Le Referring Physician: Francis Durham Interpretation Summary Left ventricular wall thickness is mild-moderately increased. The ejection fraction is estimated to be 60-65%. The calculated aortic valve area is 0.9 cm2. There has been no significant change since the previous study. The right ventricular systolic pressure is estimated at 40 mmHg assuming a right atrial pressure of 8 mm Hg. Assessment & Plan The patient is a 81 year old gentleman with past medical history of CAD status post CABG,ESRD on peritoneal dialysis for a year , diabetes presented to the emergency room due to progressively worsening dyspnea, coughing congestion of 3 days. # The patient has suspected CAP , present on admission,acute -Patient has productive cough, leukocytosis,CXr consistent with pneumonia -Antibiotic coverage for CAP not HCAP as he gets his dialysis at home -Continue ceftriaxone and azithromycin -Patient has significant congestion, therefore we will continue DuoNeb and Mucomyst nebulizer - Unable to send pneumococcus and Legionella # Elevated troponin of unknown significance -EKG without ischemic changes -We will continue to trend troponin -The patient had echo in July ,will do limited echo #ESRD on PD -Continue PD -Nephrology has been consulted and appreciate their time and expertise. # History of CAD status post CABG -Continue aspirin, metoprolol xl 25 mg daily, atorvastatin 80 mg daily # Diabetes mellitus -Continue home insulin ,LANTUS 32 u HS,Novolog 7-9 ISS (medium correction used here) # Hypertension -Continue amlodipine and metoprolol # Anemia of CKD Patient has a POLST form stating DNR/DNI ,comfort care only /do not hospitalize , but continuous peritoneal dialysis. We have consulted palliative care for clarification of goals and appreciate their time and expertise. Disposition: Patient will be here another 24-48 hours for evaluation and treatment of the above conditions. Pain Evaluation: Adequate Pain Control GI Prophylaxis: Proton Pump Inhibitor VTE Prophylaxis: Sub-Q Heparin (Unfractionated) Resuscitation Status: DNR/DNI:Do Not Resuscitate/Intubate Robert Junior MD Oct 29, 2016 00:04
--- NOTE | 2016-10-29 06:26 | NUR ---
Dialysis Tolerated dialysis tonight without any noted pain or need for disruption of treatment. Denies any significant pain or discomfort. Currently resting without any complaints.
[2016-10-29 06:57] LABS: BASOPHILS % (AUTO) 0.4 % (0-3); MONOCYTES % (AUTO) 7.9 % (4-12); Mean Corpuscular Hemoglobin 31.6 pg (27.0-35.0); Mean Corpuscular Volume 93.1 fL (81-100); Platelet Count 182 bil/L (150-400)
[2016-10-29] MEDS: Insulin LISPRO 300 Unit/3 mL Inj SUBQ SCH ×4 (08:00→23:00)
[2016-10-29] MEDS: Lactulose 20 Gm/30 mL 30 mL Syrup PO SCH (08:30)
[2016-10-29] MEDS: Tiotropium 18mcg/Cap 5 Capsule Inhaler Kit INHALATION SCH (09:14)
[2016-10-29] MEDS: Omega-3 Fatty Acids 1,000 mg Capsule PO SCH (09:15)
[2016-10-29] MEDS: cefTRIAXone Inj 1,000 MG in Dextrose 5% Minibag Plus 50 ML IV SCH (09:15)
[2016-10-29] MEDS: Heparin 5,000 Unit/mL Inj SUBQ SCH ×2 (09:16→22:58)
--- NOTE | 2016-10-29 14:05 | PCM.PNNEPH ---
Subjective Date of Service Oct 29, 2016 Subjective Mr. 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 Nephrology was consult to manage peritoneal dialysis secondary to end-stage renal disease. Overnight: Tolerated dialysis without adverse event Today: Patient awake and seemingly in no apparent distress, family not present at bedside to aid in translation. Exam Vital Signs Vital Sign - Last Date Time Temp Pulse Resp B/P Pulse Ox O2 Delivery O2 Flow Rate FiO2 10/29/16 12:32 36.9 84 20 133/69 95 Room Air 10/28/16 20:20 3.00 Intake and Output 10/28/16 10/28/16 10/29/16 Cumulative From/Thru 15:00 23:00 07:00 10/27/16 14:34 - 10/29/16 05:59 Intake Total 772 ml 300 ml 1452 ml Output Total 1021.00 ml 0 ml 1955.00 ml Balance -249.00 ml 300 ml -503.00 ml Intake Oral 475 ml 300 ml 895 ml IV Total 297 ml 0 ml 557 ml Output Urine Total 350 ml 0 ml 370 ml Ultrafiltrate 671.00 ml 1585.00 ml # Bowel Movements 2 2 Exam General: No acute distress, well-developed, well-nourished, appropriately interactive, though language barrier. HEENT: Normocephalic, atraumatic. External ears without defect. Pupils equal, round, and reactive to light and accommodation. Anicteric sclerae, moist conjunctivae, and no lid lag. Oropharynx free of erythema and cobble stoning with moist mucosa. Neck: Supple with full range of motion. No jugular venous distension. No bruits. Cardiovascular: Regular rate and rhythm with soft blowing murmur appreciated best at left second intercostal space/sternal border Pulmonary: Right lower lobe crackles. No use of accessory muscle usage, normal respiratory effort. Abdomen: Distended abdomen, peritoneal dialysis catheter in place bandage intact. Nontender to palpation, catheter insertion site. Extremities: No clubbing, cyanosis, edema. Skin: Normal temperature, turgor, and texture. Neurological: Cranial nerves grossly intact. IVs and Medications Medications Reviewed: Medications were reviewed in detail Lab and Diagnostics Result Diagram: 10/29/16 0545 10/29/16 0545 Microbiology Blood cultures are negative to date. MRSA screen is negative. X-Rays, CTs and MRIs X-RAY CHEST ONE VIEW, PORTABLE IMPRESSION: 1. New right basilar pneumonia. Follow up plain films of the chest are recommended to ensure resolution, and to exclude underlying or central malignancy. 2. Right perihilar scarring. 3. Cardiomegaly. Dictated by: Han Farrell M.D. on 10/27/2016 at 14:53 12-lead ECG SR no acute st/t wave changes Cardiac Echo Impressions Echocardiogram Report Interpretation Summary: Left ventricular wall thickness is mild-moderately increased. The ejection fraction is estimated to be 60-65%. The calculated aortic valve area is 0.9 cm2. There has been no significant change since the previous study. The right ventricular systolic pressure is estimated at 40 mmHg assuming a right atrial pressure of 8 mm Hg. Electronically signed by: Juan Canchola Plan Impression 81 year old gentleman with past medical history of ESRD on PD x 1 yr, CAD s/p CABG,HTN, diabetes admitted for CAP. Nephrology consulted for PD management. ESRD on peritoneal dialysis, present on admission, active - Continue with peritoneal dialysis, 4 cycles, 9 hours, total volume 10,000 mL, 2500 mL per cycle, 2.5% dextrose - Last fill with icodextrin 1500 mL - Lactulose 20 g daily to prevent constipation - Continue to monitor electrolytes - PD fluid analysis colorless and clear with 0 WBC, 0 RBC, awaiting Gram stain and culture results Anemia of chronic disease, present on admission, active - Most likely secondary to ESRD - Continue to monitor YUE FULTON DO Oct 29, 2016 14:05
[2016-10-29] MEDS ORDERED: [UNRECOGNIZED DRUG - OTHER] LEFT_EYE (15:45)
[2016-10-29] MEDS ORDERED: guaiFENesin DM 200-20 mg/10 mL Syrup PO PRN (16:45)
[2016-10-29] MEDS ORDERED: Promethazine 1.25 mg/mL 118 mL Syrup PO PRN (17:00)
--- NOTE | 2016-10-29 18:01 | NUR ---
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 paged, ordered, gtts hand carried by primary RN to pharmacy for labeling. Gtts are currently in [facility] medication room refrigerator in red STAT bag w/ patient label. Gtts to be administered QID.
--- NOTE | 2016-10-29 19:17 | NUR ---
Peritoneal Dialysis Dialysis started @ 1800, to be completed @ 0315 & disconnected @ 0715 per nurse esthetician. Daughter brought solution to be used from home.
--- NOTE | 2016-10-29 20:36 | DRSVH ---
PROCEDURE: X-RAY CHEST ONE VIEW, PORTABLE ([id number]) INDICATIONS: Follow Up for Pneumonia TECHNIQUE: One view of the chest was acquired. COMPARISON: [facility], CR, XR CHEST 2VW, 06/07/2016, 15:20. [facility], CR , XR CHEST 1VW (PORTABLE), 10/27/2016, 14:30. FINDINGS: Surgical changes and devices: None. Lungs and pleura: No pleural effusions or pneumothorax. There continues to be moderate patchy infilt rate in the right base posteriorly. No acute disease is appreciated in the left lung. Mediastinum: Mediastinal contours appear normal. Heart size is normal. Bones and chest wall: No suspicious bony lesions. Overlying soft tissues appear unremarkable. IMPRESSION: Right lower lobe pneumonia persists. Dictated by: Jose Anderson M.D. on 10/29/2016 at 20:34 Approved by: Jose Anderson M.D. on 10/29/2016 at 20:34
[2016-10-29] MEDS: Insulin GLARgine 100 Unit/mL Syringe SUBQ SCH (22:59)
[2016-10-29] MEDS: [UNRECOGNIZED DRUG - OTHER] LEFT_EYE SCH (23:03)
--- NOTE | 2016-10-29 23:23 | PCM.PNMED ---
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 The patient's daughter is fluent in the patient's [place] language and Khmer. He is requesting the same cough medicine that he has at home. The patient has no other complaints. Exam Vital Signs Vital Sign - Last Date Time Temp Pulse Resp B/P Pulse Ox O2 Delivery O2 Flow Rate FiO2 10/29/16 20:23 36.6 93 144/63 100 Nasal Cannula 3.00 10/29/16 19:45 18 Intake and Output 10/28/16 10/28/16 10/29/16 Cumulative From/Thru 15:00 23:00 07:00 10/27/16 14:34 - 10/29/16 05:59 Intake Total 772 ml 300 ml 1452 ml Output Total 1021.00 ml 0 ml 1955.00 ml Balance -249.00 ml 300 ml -503.00 ml Intake Oral 475 ml 300 ml 895 ml IV Total 297 ml 0 ml 557 ml Output Urine Total 350 ml 0 ml 370 ml Ultrafiltrate 671.00 ml 1585.00 ml # Bowel Movements 2 2 Exam General: The patient is resting comfortably supine in bed. He is quite somnolent today and he did not sleep much last night due to cough. HEENT: Head is atraumatic and normocephalic. Eyes: Pupils are equally round and reactive to light and accommodation. Extraocular muscles are intact. Sclera are white, anicteric. Subconjunctival mucosa is pink. Ears and nose are unremarkable. Oropharynx: There is no mucosal lesions, there is no thrush, there is no pharyngitis. Neck: Is supple, there are no nodes, or masses or tenderness. Chest: Is clear to auscultation and percussion. There are no rales, rhonchi, wheezes or rubs. Heart: Rate, rhythm is regular. There is no murmur, rub or gallop. Abdomen: Good bowel sounds are present. Abdomen is slightly distended, nontender, no organomegaly or masses were appreciated. Peritoneal dialysis catheter site is unremarkable. Extremities: Are symmetrical and well perfused. There is no edema, there is no cellulitis, no rash. Neurologic: There are no focal neurological deficits. Cranial nerves II through XII are intact. There are no sensory or motor deficits. Psychiatric: Patients mood is calm and shows no sign of agitation. He is somnolent today due to lack of sleep last night. Genital: Deferred Rectal: Deferred Lab and Diagnostics Result Diagram: 10/29/1654410/29/16544 Microbiology Blood cultures are negative to date. MRSA screen is negative. X-Rays, CTs and MRIs X-RAY CHEST ONE VIEW, PORTABLE IMPRESSION: 1. New right basilar pneumonia. Follow up plain films of the chest are recommended to ensure resolution, and to exclude underlying or central malignancy. 2. Right perihilar scarring. 3. Cardiomegaly. Dictated by: Han Farrell M.D. on 10/27/2016 at 14:53 12-lead ECG SR no acute st/t wave changes Cardiac Echo Impressions Echocardiogram Report Interpretation Summary: Left ventricular wall thickness is mild-moderately increased. The ejection fraction is estimated to be 60-65%. The calculated aortic valve area is 0.9 cm2. There has been no significant change since the previous study. The right ventricular systolic pressure is estimated at 40 mmHg assuming a right atrial pressure of 8 mm Hg. Electronically signed by: Juan Canchola Assessment & Plan The patient is a 81 year old gentleman with past medical history of CAD status post CABG,ESRD on peritoneal dialysis for a year , diabetes presented to the emergency room due to progressively worsening dyspnea, coughing congestion of 3 days. # The patient has suspected CAP , present on admission,acute -Patient has productive cough, leukocytosis,CXr consistent with pneumonia -Antibiotic coverage for CAP not HCAP as he gets his dialysis at home -Continue ceftriaxone and azithromycin -Patient has significant congestion, therefore we will continue DuoNeb and Mucomyst nebulizer - Unable to send pneumococcus and Legionella - We will start promethazine cough medicine. - Check repeat chest x-ray in a.m. # Elevated troponin of unknown significance -EKG without ischemic changes -We will continue to trend troponin -The patient had echo in July ,will do limited echo # ESRD on PD -Continue PD -Nephrology has been consulted and appreciate their time and expertise. # Hypokalemia evident on chemistry panel today. - We will defer management to nephrology as patient is on peritoneal dialysis. # History of CAD status post CABG -Continue aspirin, metoprolol xl 25 mg daily, atorvastatin 80 mg daily # Diabetes mellitus -Continue home insulin ,LANTUS 32 u HS,Novolog 7-9 ISS (medium correction used here) # Hypertension -Continue amlodipine and metoprolol # Anemia of CKD Patient has a POLST form stating DNR/DNI ,comfort care only /do not hospitalize , but continuous peritoneal dialysis. We have consulted palliative care for clarification of goals and appreciate their time and expertise. Disposition: Patient will be here another 24-48 hours for evaluation and treatment of the above conditions. Pain Evaluation: Adequate Pain Control GI Prophylaxis: Proton Pump Inhibitor VTE Prophylaxis: Sub-Q Heparin (Unfractionated) Resuscitation Status: DNR/DNI:Do Not Resuscitate/Intubate Robert Junior MD Oct 29, 2016 23:23
[2016-10-30 04:37] VITALS: BP 151/71; PULSE 87; RESP 18; O2SAT 99
[2016-10-30 06:23] VITALS: PULSE 89
--- NOTE | 2016-10-30 07:15 | NUR ---
Peritoneal Dialysis Pt had PD running over NOC. band cutter is here now to disconnect. No overt complications noted.
[2016-10-30 07:25] VITALS: PULSE 83; RESP 18; O2SAT 93
[2016-10-30] MEDS: Insulin LISPRO 300 Unit/3 mL Inj SUBQ SCH ×2 (07:39→11:52)
[2016-10-30] MEDS: [UNRECOGNIZED DRUG - OTHER] LEFT_EYE SCH ×2 (07:53→11:51)
[2016-10-30] MEDS: Lactulose 20 Gm/30 mL 30 mL Syrup PO SCH ×2 (07:54→11:59)
[2016-10-30] MEDS: Heparin 5,000 Unit/mL Inj SUBQ SCH (07:54)
[2016-10-30] MEDS: cefTRIAXone Inj 1,000 MG in Dextrose 5% Minibag Plus 50 ML IV SCH (07:55)
[2016-10-30] MEDS: Omega-3 Fatty Acids 1,000 mg Capsule PO SCH (07:55)
[2016-10-30] MEDS: Tiotropium 18mcg/Cap 5 Capsule Inhaler Kit INHALATION SCH ×2 (07:55→08:36)
[2016-10-30 08:00] VITALS: BP 139/65; PULSE 91; RESP 16; O2SAT 97
[2016-10-30 09:09] VITALS: PULSE 89
[2016-10-30 09:13] LABS: BASOPHILS % (AUTO) 0.6 % (0-3); EOSINOPHILS % (AUTO) 5.4 % (0-5); MONOCYTES % (AUTO) 8.8 % (4-12); NEUTROPHILS % (AUTO) 73.1 % (40-74); Platelet Count 224 bil/L (150-400)
--- NOTE | 2016-10-30 10:53 | NUR ---
Social Work-readiness for discharge/multidisciplinary rounds: Data:EMR reviewed. Pt is on day 3 of hospitalization for pneumonia per H&P. Pt will likely be here another 1-2 more days. Pt resides at home with his daughter who provides / care. Pt also does peritoneal dialysis. Per RN notes, pt has been up in his room. Pt's daughter to provide transport home. No anticipated discharge needs. SW will continue to follow if needs arise. Assessment:pt who is independent at baseline. Plan:Pt to discharge home when medically stable via POV. No anticipated discharge needs. SW will continue to follow if needs arise. FELICIA Steinberg
[2016-10-30 12:23] VITALS: BP 166/72; PULSE 95; RESP 18; O2SAT 96
[2016-10-30] MEDS ORDERED: Darbepoetin Alfa 60 mCg/0.3 mL Inj SUBQ ONE (12:45)
--- NOTE | 2016-10-30 12:49 | PCM.DIMED ---
Discharge Instructions Date of Service Oct 30, 2016 Dates of Hospitalization Oct 27, 2016 at 16:50 Discharge Diagnosis Discharge Diagnosis Community Acquired Pneumonia Diet Discharge Diet: Renal Diet Activity Discharge Activity: No restrictions Call your provider Call your provider for: Fever or Chills, Shortness of breath, Bleeding, Chest pain, Vomitting, Excessive diarrhea, Weakness (unilateral) Patient Instructions Follow-up Provider: Enrique Durham MD Follow-up with PCP in: 2 weeks Provider: Irina Loya MD Follow-up in: 1 week Robert Junior MD Oct 30, 2016 12:49
[2016-10-30] MEDS ORDERED: CEFD300C3 PO (12:52)
[2016-10-30] MEDS ORDERED: ZIT250 PO (12:52)
--- NOTE | 2016-10-30 13:59 | NUR ---
Social Work-discharge: Data:EMR Reviewed. Pt is on day 3 of hospitalization for pneumonia per H&P. Pt is medically stable for discharge. Pt resides at home with his daughter would provides 28/10 care. Daughter does pt's peritoneal dialysis. Pt's daughter to provide transport home. No discharge needs identified. SW will continue to follow if needs arise. Assessment:pt who is independent at baseline. Plan:Pt to discharge home today via POV. No discharge needs identified. SW will continue to follow if needs arise. FELICIA Steinberg
--- NOTE | 2016-10-30 15:05 | NUR ---
Discharge Note Patient discharged, daughter here to transport home. IV catheter x 1 & telemetry box removed. Discharge instructions/medications discussed & understood by daughter/caregiver. Prescriptions x 2 faxed to [facility], daughter aware. All belongings gathered, nothing left behind, daughter signed stating she received patients Interferon chemotherapy eye gtts. Patient transported out via wheelchair by [employer].
--- NOTE | 2016-10-30 15:11 | PCM.PNNEPH ---
Subjective Date of Service Oct 30, 2016 Subjective Mr. 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 Nephrology was consult to manage peritoneal dialysis secondary to end-stage renal disease. Overnight: Received Peritoneal dialysis yesterday, no complications no adverse events reported. Today: Patient awake sitting in bed, family not present at bedside for interpretation. When asked if he was expressing pain he denied. Exam Vital Signs Vital Sign - Last Date Time Temp Pulse Resp B/P Pulse Ox O2 Delivery O2 Flow Rate FiO2 10/30/16 12:23 36.6 95 18 166/72 96 Room Air 10/30/16 04:37 3.00 Intake and Output 10/29/16 10/29/16 10/30/16 Cumulative From/Thru 15:00 23:00 07:00 10/27/16 14:34 - 10/30/16 05:44 Intake Total 880 ml 200 ml 2532 ml Output Total 600 ml 225 ml 2780.00 ml Balance 280 ml -25 ml -248.00 ml Intake Oral 800 ml 200 ml 1895 ml IV Total 80 ml 637 ml Output Urine Total 225 ml 595 ml Urine/Stool Mix 600 ml 600 ml Ultrafiltrate 1585.00 ml # Bowel Movements 2 Exam General: No acute distress, well-developed, well-nourished, appropriately interactive, though language barrier. HEENT: Normocephalic, atraumatic. External ears without defect. Crescent conjunctiva moist mucosa. Neck: Supple with full range of motion. No jugular venous distension. No bruits. Cardiovascular: Regular rate and rhythm with soft blowing murmur appreciated best at left second intercostal space/sternal border Pulmonary: Right lower lobe crackles. No use of accessory muscle usage, normal respiratory effort. Abdomen: Distended abdomen, peritoneal dialysis catheter in place bandage intact. Nontender to palpation Extremities: No clubbing, cyanosis, edema. Skin: Normal temperature, turgor, and texture. Neurological: Cranial nerves grossly intact. IVs and Medications Medications Reviewed: Medications were reviewed in detail Lab and Diagnostics Result Diagram: 10/30/16 0732 10/30/16 0732 Microbiology Blood cultures are negative to date. MRSA screen is negative. X-Rays, CTs and MRIs X-RAY CHEST ONE VIEW, PORTABLE IMPRESSION: 1. New right basilar pneumonia. Follow up plain films of the chest are recommended to ensure resolution, and to exclude underlying or central malignancy. 2. Right perihilar scarring. 3. Cardiomegaly. Dictated by: Han Farrell M.D. on 10/27/2016 X-RAY CHEST ONE VIEW, PORTABLE IMPRESSION: Right lower lobe pneumonia persists. Dictated by: Jose Anderson M.D. on 10/29/2016 12-lead ECG SR no acute st/t wave changes Cardiac Echo Impressions Echocardiogram Report Interpretation Summary: Left ventricular wall thickness is mild-moderately increased. The ejection fraction is estimated to be 60-65%. The calculated aortic valve area is 0.9 cm2. There has been no significant change since the previous study. The right ventricular systolic pressure is estimated at 40 mmHg assuming a right atrial pressure of 8 mm Hg. Electronically signed by: Juan Canchola Plan Impression 81 year old gentleman with past medical history of ESRD on PD x 1 yr, CAD s/p CABG,HTN, diabetes admitted for CAP. Nephrology consulted for PD management. ESRD on peritoneal dialysis, present on admission, active - Continue with peritoneal dialysis, this can be continued in an outpatient setting - Lactulose 20 g daily to prevent constipation - Continue to monitor electrolytes - PD fluid analysis colorless and clear with 0 WBC, 0 RBC, awaiting Gram stain and culture negative to date Anemia of chronic disease, present on admission, stable - Most likely secondary to ESRD - Continue to monitor YUE FULTON DO Oct 30, 2016 15:11
--- NOTE | 2016-10-31 01:31 | PCM.DC.MED ---
Discharge Summary Date of Service Oct 30, 2016 Dates of Hospitalization Date of Hospital Admission Oct 27, 2016 at 16:50 Date of Discharge: Oct 30, 2016 Providers: Admitting Physician: Bandar Gardner MD Primary Care Physician: Enrique Durham MD Attending Physician: Robert Junior MD Diagnosis at Time of Discharge Diagnosis at Time of Discharge Community Acquired Pneumonia Consultations Nephrology with Dr. Yan Castaneda XRay, CTs & MRIs X-RAY CHEST ONE VIEW, PORTABLE IMPRESSION: 1. New right basilar pneumonia. Follow up plain films of the chest are recommended to ensure resolution, and to exclude underlying or central malignancy. 2. Right perihilar scarring. 3. Cardiomegaly. Dictated by: Han Farrell M.D. on 10/27/2016 X-RAY CHEST ONE VIEW, PORTABLE IMPRESSION: Right lower lobe pneumonia persists. Dictated by: Jose Anderson M.D. on 10/29/2016 ECG 12 Lead SR no acute st/t wave changes Cardiac Echo Impression Echocardiogram Report Interpretation Summary: Left ventricular wall thickness is mild-moderately increased. The ejection fraction is estimated to be 60-65%. The calculated aortic valve area is 0.9 cm2. There has been no significant change since the previous study. The right ventricular systolic pressure is estimated at 40 mmHg assuming a right atrial pressure of 8 mm Hg. Electronically signed by: Juan Canchola Brief History Nephrology consultation: Mr. 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 Nephrology was consult to manage peritoneal dialysis secondary to end-stage renal disease. Per admission note patient was seen by PCP on Friday and was seen to have dyspnea, productive cough and congestion and prescribed inhalers. During interview of patient with patient's daughter present in room she states patient has a mildly productive cough most notably in the morning and has had a steady progression of dyspnea over the last week. Patient's daughter denies any fevers /chills, nausea vomiting, or complaints though does state he has been constipated over the last few days. No reported chest pain. In the ED patient was found to have tachypnea and mild temperature elevation with leukocytosis. EKG showed no ischemic change protocol stone was normal. Chest x-ray showed a new right basilar pneumonia and he was started on ceftriaxone and azithromycin. Hospital Course The patient is a 81 year old gentleman with past medical history of CAD status post CABG,ESRD on peritoneal dialysis for a year , diabetes presented to the emergency room due to progressively worsening dyspnea, coughing congestion of 3 days. # The patient has suspected CAP , present on admission,acute -Patient has productive cough, leukocytosis,CXr consistent with pneumonia -Antibiotic coverage for CAP not HCAP as he gets his dialysis at home -Continued ceftriaxone and azithromycin throughout hospitalization and this will be changed to cefdinir 300 mg by mouth twice a day and in his azithromycin 250 mg by mouth daily for total of 7 days. -Patient has significant congestion, therefore we will continue DuoNeb and Mucomyst nebulizer - Unable to send pneumococcus and Legionella - We will start promethazine cough medicine. - Check repeat chest x-ray in a.m. # Elevated troponin of unknown significance -EKG without ischemic changes -We will continue to trend troponin -The patient had echo in July ,will do limited echo # ESRD on PD -Continue PD -Nephrology has been consulted and appreciate their time and expertise. # Hypokalemia evident on chemistry panel today. - We will defer management to nephrology as patient is on peritoneal dialysis. # History of CAD status post CABG -Continue aspirin, metoprolol xl 25 mg daily, atorvastatin 80 mg daily # Diabetes mellitus -Continue home insulin ,LANTUS 32 u HS,Novolog 7-9 ISS (medium correction used here) # Hypertension -Continue amlodipine and metoprolol # Anemia of CKD Patient has a POLST form stating DNR/DNI ,comfort care only /do not hospitalize , but continuous peritoneal dialysis. We have consulted palliative care for clarification of goals and appreciate their time and expertise. Disposition: Patient will be discharged home today in the care of his daughter. Exam Vital Signs (Last) Date Time Temp Pulse Resp B/P Pulse Ox O2 Delivery O2 Flow Rate FiO2 10/30/16 12:23 36.6 95 18 166/72 96 Room Air 10/30/16 04:37 3.00 Exam General: The patient is resting comfortably supine in bed. He is quite somnolent today and he did not sleep much last night due to cough. HEENT: Head is atraumatic and normocephalic. Eyes: Pupils are equally round and reactive to light and accommodation. Extraocular muscles are intact. Sclera are white, anicteric. Subconjunctival mucosa is pink. Ears and nose are unremarkable. Oropharynx: There is no mucosal lesions, there is no thrush, there is no pharyngitis. Neck: Is supple, there are no nodes, or masses or tenderness. Chest: Is clear to auscultation and percussion. There are no rales, rhonchi, wheezes or rubs. Heart: Rate, rhythm is regular. There is no murmur, rub or gallop. Abdomen: Good bowel sounds are present. Abdomen is slightly distended, nontender, no organomegaly or masses were appreciated. Peritoneal dialysis catheter site is unremarkable. Extremities: Are symmetrical and well perfused. There is no edema, there is no cellulitis, no rash. Neurologic: There are no focal neurological deficits. Cranial nerves II through XII are intact. There are no sensory or motor deficits. Psychiatric: Patients mood is calm and shows no sign of agitation. He is somnolent today due to lack of sleep last night. Genital: Deferred Rectal: Deferred Test 10/27/16 15:00 10/28/16 05:40 10/28/16 15:57 10/28/16 19:41 Prothrombin Time 10.0sec (8.1-12.5) Prothromb Time International Ratio 0.94ratio Lactic Acid Level 1.2mmol/L (0.4-2.0) Total Creatine Kinase 316U/L (21-232) Creatine Kinase MB 3.6ng/mL (0.0-10.4) Creatine Kinase MB % % (0.0-5.0) Troponin T 0.068ug/L (0.0-0.011) Pro-B-Type Natriuretic Peptide 3217pg/mL (0-486) Procalcitonin 0.53ng/mL (0.00-0.08) Urine Color Straw (YELLOW) Urine Appearance Hazy (CLEAR,HAZY) Urine pH 6.0 (5.0-8.0) Urine Specific [place] 1.010 (1.003-1.035) Urine Protein 100mg/dL (NEG,TRACE) Urine Glucose (UA) 250mg/dL (NEGATIVE) Urine Ketones Negativemg/dL (NEGATIVE) Urine Occult Blood Trace (NEGATIVE) Urine Nitrite Negative (NEGATIVE) Urine Bilirubin Negative (NEGATIVE) Urine Urobilinogen Normalmg/dL (NORMAL) Urine Leukocyte Esterase Negative (NEGATIVE) Urine RBC 0-2/hpf (0-2) Urine WBC 0-5/hpf (0-5) Urine Epithelial Cells Few/hpf (NONE-MOD) Urine Crystals Amorphous urates (NONE Urine Bacteria Few/hpf (NONE-FEW) Urine Hyaline Casts None/lpf (NONE) Urine Granular Casts Rare (NONE SEEN) Urine Waxy Casts None seen (NONE SEEN) Urine Red Blood Cell Casts None seen (NONE SEEN) Urine White Blood Cell Casts None seen (NONE SEEN) Urine Mucus None seen (None Seen) Urine Trichomonas None seen (NONE SEEN) Urine Yeast None (NONE SEEN) Urinalysis Comment None Urine Culture Reflexed Not indicated Urine Legionella pneumophilia Ag Negative (Negative) Body Fluid Source Peritoneal fluid Body Fluid Color Colorless (Clear) Body Fluid Appearance Clear Body Fluid WBC 0/mm3 Body Fluid RBC 0/mm3 Body Fluid Polynuclear WBCs % Body Fluid Lymphocytes % Body Fluid Monocytes % Body Fluid Eosinophils % Body Fluid Basophils % Test 10/29/16 05:45 10/30/16 07:32 Hemoglobin A1c 7.2% (4.8-5.6) White Blood Count 11.0th/mm3 (3.8-10.1) Red Blood Count 3.10mil/mm3 (4.40-5.80) Hemoglobin 9.6g/dL (13.8-17.2) Hematocrit 28.2% (41.0-50.0) Mean Corpuscular Volume 91.0fL (81-100) Mean Corpuscular Hemoglobin 31.0pg (27.0-35.0) Mean Corpuscular Hemoglobin Concent 34.0% (32.0-37.0) Red Cell Distribution Width 12.3% (12.3-15.4) Platelet Count 224bil/L (150-400) Neutrophils (%) (Auto) 73.1% (40-74) Lymphocytes (%) (Auto) 11.3% (14-46) Monocytes (%) (Auto) 8.8% (4-12) Eosinophils (%) (Auto) 5.4% (0-5) Basophils (%) (Auto) 0.6% (0-3) Sodium Level 137mEq/L (134-144) Potassium Level 3.5mEq/L (3.5-5.2) Chloride Level 96mEq/L (97-108) Carbon Dioxide Level 23mmol/L (18-29) Blood Urea Nitrogen 36mg/dL (8-27) Creatinine 5.38mg/dL (0.76-1.27) Estimat Glomerular Filtration Rate 11mL/min (>59) Glucose Level 151mg/dL (60-99) Calcium Level 8.7mg/dL (8.5-10.1) Magnesium Level 2.0mg/dL (1.6-2.6) Total Bilirubin 0.3mg/dL (0.0-1.2) Aspartate Amino Transf (AST/SGOT) 15U/L (0-50) Alanine Aminotransferase (ALT/SGPT) 19U/L (0-44) Alkaline Phosphatase 92U/L (25-160) Total Protein 6.9g/dL (6.4-8.4) Albumin 3.2g/dL (3.4-5.0) Microbiology Results Blood cultures are negative to date. MRSA screen is negative. Discharge Medications Discharge Medications ([C Interferon A-2b ]) 1 GTT LEFT_EYE QID (Reported) Amlodipine (Amlodipine) 10 Mg Tablet 10 MG PO QAM (Reported) Aspirin (Aspirin) 81 Mg Tablet 81 MG PO QAM (Reported) Atorvastatin (Lipitor) 80 Mg Tablet 80 MG PO HS (Reported) Azithromycin (Zithromax) 250 Mg Tablet 250 MG PO DAILY Prescribed by: JONY JUNIOR MD Cefdinir (Cefdinir) 300 Mg Capsule 300 MG PO BID Prescribed by: JONY JUNIOR MD Finasteride (Finasteride) 5 Mg Tablet 5 MG PO QAM (Reported) Folic Acid/Vitamin B Comp W-C (Triphrocaps Softgel) 1 Mg Capsule 1 MG PO QAM ( Reported) Gabapentin (Gabapentin) 300 Mg Capsule 300 MG PO DAILY (Reported) ON FRIDAY/FRIDAY/FRIDAYS Insulin Aspart (NovoLOG U-100 Pen) 100 Unit/Ml Insuln.pen 7-8 UNITS SUBQ TIDAC ( Reported) GIVE 7 UNITS IF BG 100-200 MG/DL, GIVE 8 UNITS IF BG > 200 MG/DL. IF BG < 90 , DO NOT GIVE AND WAIT 2 HOURS Insulin Glargine (Lantus U100 Insulin Vial) 100 Unit/Ml Vial 32-36 UNIT SUBQ HS (Reported) TAKES 36 UNITS IF BG > 140 MG/DL. 32 UNITS FOR BG 100->140 MG/DL. Multivitamin (Multivitamins) 1 Each Capsule 1 EACH PO QAM (Reported) [place]-3/Dha/Epa/Fish Oil (Fish Oil 1,000 mg Softgel) 1 Each Capsule 1 EACH PO QAM (Reported) Ranitidine (Ranitidine) 75 Mg Tablet 75 MG PO QAM (Reported) Trazodone (Trazodone) 50 Mg Tablet 25 MG PO HS (Reported) Umeclidinium [place] (Incruse Ellipta) 62.5 Mcg/Actuation Blst.w.dev 62.5 MCG IH QAM (Reported) As needed Lactulose (Lactulose) 20 Gm/30 Ml Solution 20 GM PO PRN For Constipation ( Reported) Nitroglycerin SL (Nitrostat) 0.4 Mg Tab.subl 0.4 MG SL Q5MIN PRN PRN For Chest Pain (Reported) Olopatadine (Patanol) 5 Ml Soln 1 DRP AFFECT_EYE DAILY PRN PRN For Eye Irritation (Reported) Followup Plan Disposition: Patient was discharged home. He will be in the care of his daughter. Discharge Diet: Renal Diet Discharge Activity: No restrictions Follow-up Provider: Enrique Durham MD Follow-up with PCP in: 2 weeks Provider: Irina Loya MD Follow-up in: 1 week Time spent Time spent on discharging this patient was greater than 35 minutes, over half of which was involved in counseling and coordination of care. Robert Junior MD Oct 31, 2016 01:31
== END 2016-10-30 14:57 | disposition home or self-care (01) | DRG 193 ==
LOC: SED 14:29 → MPC 16:50
PROVIDERS: ADMIT Internal Medicine; ATTEND Internal Medicine Infectious Disease
PROC: 3E1M39Z Irrigation of Peritoneal Cavity using Dialysate, Percutaneous Approach (ICD-10-PCS; principal; 2016-10-27)
PROC: 3E1M39Z Irrigation of Peritoneal Cavity using Dialysate, Percutaneous Approach (ICD-10-PCS; 2016-10-28)
PROC: 3E1M39Z Irrigation of Peritoneal Cavity using Dialysate, Percutaneous Approach (ICD-10-PCS; 2016-10-29)
DX: J18.9 Pneumonia, unspecified organism (principal); N18.6 End stage renal disease; I12.0 Hypertensive chronic kidney disease with stage 5 chronic kidney disease or end stage renal disease; Z99.2 Dependence on renal dialysis; Z79.82 Long term (current) use of aspirin; Z79.4 Long term (current) use of insulin; Z95.1 Presence of aortocoronary bypass graft; R74.8 Abnormal levels of other serum enzymes; E11.9 Type 2 diabetes mellitus without complications; I25.10 Atherosclerotic heart disease of native coronary artery without angina pectoris; D63.1 Anemia in chronic kidney disease; Z66 Do not resuscitate; Z51.5 Encounter for palliative care